=== PATIENT | female | born 1945 | race Hispanic/Latino ===

== ENCOUNTER → 2019-05-19 | Day surgery (SDC) | payer MEDICARE ==
[2019-05-17 11:07] LABS: BASOPHILS % 0.4 % (0.0-1.0); EOSINOPHILS # (AUTO) 0.2 (0.0-0.4); EOSINOPHILS % 2.8 % (0.0-6.0); HEMATOCRIT 39.3 % (34.2-44.1); HEMOGLOBIN 12.7 g/dL (12.0-16.0); LYMPHOCYTES # (AUTO) 1.3 (1.0-3.2); LYMPHOCYTES % 16.5 % (18.0-39.1); MEAN CORPUSCULAR HEMOGLOBIN 30.8 pg (28-32); MEAN CORPUSCULAR HGB CONC 32.3 g/dL (31-35); MEAN CORPUSCULAR VOLUME 95.4 fL (81-99); MONOCYTES # (AUTO) 0.6 (0.2-0.8); MONOCYTES % 7.4 % (4.4-11.3); NEUTROPHILS # (AUTO) 5.7 (2.1-6.9); NEUTROPHILS % 72.5 % (38.7-80.0); PLATELET COUNT 164 x10e3/uL (140-360); RED BLOOD COUNT 4.12 x10e6/uL (3.6-5.1); RED CELL DISTRIBUTION WIDTH 12.7 % (11.7-14.4)
[~2019-05-19] MED LIST: ASPIR 8181 MG PO; CITALOPRAM HBR20 MG PO; CLOPIDOGREL75 MG PO; GABAPENTIN300 MG PO; GLYBURIDE1.25 MG PO; ISOSORBIDE MONO30 MG PO; JANUVIA100 MG PO; LANTUS100 UNITS/ SC; LEVEMIR100 UNIT/1 SC; LOSARTAN-HCTZ1 EAC1 PO; METFORMIN HCL1000 MG PO; METOPROLOL TART50 MG PO; MICARDIS40 MG PO; MINOCYCLINE HCL50 MG PO; NORCO 7.5-3251 EACH PO; PROMETHAZINE12.5 M1 PO; PROPOFOL IV EMULSION 10 MG/ML 20 ML VIAL ONE; SIMVASTATIN40 MG PO; ULTRAM 50MG50 MG PO; ULTRAM50 MG PO; ZETIA10 MG PO
--- OUTSIDE RECORDS SUMMARY | 2019-05-19 09:08 | XMS REPORT ---
Author Author [facility] Address Unknown Phone Unavailable Care Team Providers Care Software Installer Name Role Phone Unavailable Unavailable Payers Payer Name Policy Type Policy Number Effective Date Expiration Date Problems This patient has no known problems. Allergies, Adverse Reactions, Alerts Allergy Name Allergy Type Status Severity Reaction(s) Onset Date Inactive Date Treating Clinician Comments No Known Allergies DA Active U 2012-05-13 00:00:00 Medications This patient has no known medications. Results Test Description Test Time Test Comments Text Results Atomic Results Result Comments - US RETROPERITONEAL COM 2019-04-29 14:48:00 Name: SHAMAR HERNANDEZ [facility] : 1945 Age/S: 73 / F [address] [facility] Unit #: [id number] Loc: [place] [address] Phys: Wanda Torres NP Acct: [id number] Dis Date: Status: REG CLI PHONE #: [phone] Exam Date: 04/29/2019 1417 FAX #: [phone] Reason: R31.21 EXAMS: CPT CODE: [id number] US RETROPERITONEAL COM 80397 REASON FOR EXAM: R31.21 EXAM ORDER DATE: 04/29/2019 1:10 PM Attending Fiorella: Wanda Torres NP PROCEDURE: - US RETROPERITONEAL COM Comparison: No relevant priors FINDINGS: Right kidney: parenchyma echogenicity: Normal echogenicity size: 9.3 x 4.2 x 3.8 cm. stones: none cysts/masses: none hydronephrosis: none Left kidney: parenchyma echogenicity: Normal echogenicity size: 9.7 x 4.2 x 4.2 cm. stones: none cysts/masses: none hydronephrosis: none Urinary Bladder: Ureteral jets: Not visualized Intraluminal masses/debris: None Wall thickness: Normal Outpouching: None IMPRESSION: Sonographically unremarkable kidneys. at 144 Reported and signed by: Neo Romero MD PAGE 1 Signed Report (CONTINUED) Name: SHAMAR HERNANDEZ [facility] : 1945 Age/S: 73 / F [address] [facility] Unit #: [id number] Loc: [place] [address] Phys: Wanda Torres NP Acct: [id number] Dis Date: Status: REG CLI PHONE #: [phone] Exam Date: 04/29/2019 1417 FAX #: [phone] Reason: R31.21 EXAMS: CPT CODE: [id number] [facility] [id number] <Continued> CC: Wanda Torres COMMERCIAL JOURNEYMAN ELECTRICIAN; Yeimi Ruiz MD Technologist: MARCOS ESCOBAR RT(R),[facility] Trnscb Date/Time: 04/29/2019 (1448) [email or web address] Orig Print D/T: S: 04/29/2019 (7443) Probe: PAGE 2 Signed Report
[2019-05-19 12:15] VITALS: BP 144/77
== END | disposition home or self-care (01) ==
LOC: OR 09:06
PROVIDERS: ATTEND Internal Medicine
DX: K29.70 Gastritis, unspecified, without bleeding (principal); K62.1 Rectal polyp; K21.9 Gastro-esophageal reflux disease without esophagitis; K44.9 Diaphragmatic hernia without obstruction or gangrene; K64.0 First degree hemorrhoids; E11.9 Type 2 diabetes mellitus without complications; I25.10 Atherosclerotic heart disease of native coronary artery without angina pectoris; I10 Essential (primary) hypertension; Z01.810 Encounter for preprocedural cardiovascular examination; Z01.812 Encounter for preprocedural laboratory examination; Z79.4 Long term (current) use of insulin; Z79.84 Long term (current) use of oral hypoglycemic drugs; Z68.30 Body mass index [BMI] 30.0-30.9, adult; Z95.0 Presence of cardiac pacemaker
CPT/HCPCS: 36415 ×2; 43239; 45380; 82948; 85025; 88305; 88312; 93005; J2704; 45378

== ENCOUNTER 2020-03-29 13:23 | Outpatient (RCR) | payer MEDICARE ==
[~2020-03-29 13:23] MED LIST changes: -PROPOFOL IV EMULSION 10 MG/ML 20 ML VIAL ONE
== END 2020-04-09 ==
LOC: WCC 13:23
PROVIDERS: ATTEND Family Medicine Adult Medicine
DX: E11.65 Type 2 diabetes mellitus with hyperglycemia (principal); L97.811 Non-pressure chronic ulcer of other part of right lower leg limited to breakdown of skin; I70.238 Atherosclerosis of native arteries of right leg with ulceration of other part of lower leg; I87.2 Venous insufficiency (chronic) (peripheral); R60.0 Localized edema; I79.8 Other disorders of arteries, arterioles and capillaries in diseases classified elsewhere; G99.0 Autonomic neuropathy in diseases classified elsewhere; I10 Essential (primary) hypertension; E78.2 Mixed hyperlipidemia
CPT/HCPCS: 36415; 82948

== ENCOUNTER 2020-04-03 15:55 | Emergency (ER) | payer MEDICARE ==
[~2020-04-03] VITALS: Ht 157.5 cm; Wt 68.0 kg
--- OUTSIDE RECORDS SUMMARY | 2020-04-03 16:29 | XMS REPORT | Continuity of Care Document ---
Author Author [facility] t Organization [facility] Address [address] [place] [id number] Phone Unavailable Care Team Providers Care Service Girl Name Role Phone Unavailable Unavailable Payers Payer Name Policy Type Policy Number Effective Date Expiration Date S ource Problems This patient has no known problems. Allergies, Adverse Reactions, Alerts Allergy Name Allergy Type Status Severity Reaction(s) Onset Date Inacti ve Date Treating Clinician Comments Source No Known Allergies DA Active U 2012-05-13 00:00:00 [facility] Medications This patient has no known medications. Procedures This patient has no known procedures. 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 at 1448 Reported and signed by: Neo Romero MD PAGE 1 Signed Report (CONTINUED) Name: SHAMAR HERNANDEZ [facility] : 1945 Age/S: 73 / F [address] [facility] Unit #: [id number] Loc: [place] [address] Phys: Wanda Torres NP Acct: [id number] Dis Date: Status: REG CLI PHONE #: [phone] Exam Date: 04/29/2019 1417 FAX #: [phone] Reason: R31.21 EXAMS: CPT CODE: [id number] US RETROPERITONEAL COM [id number] <Continued> CC: Wanda Torres NP; Yeimi Ruiz MD Technologist: MARCOS ESCOBAR RT(R),[facility] Trnscb Date/Time: 04/29/2019 (1448) [email or web address] Orig Print D/T: S: 04/29/2019 (9089) Probe: PAGE 2 Signed Report
--- NOTE | 2020-04-03 16:35 | Emergency Department Note ---
History of Present Illnes History of Present Illness Chief Complaint: General Medicine Complaints History of Present Illness This is a 74 year old female Chief Complaint Comment PATIENT IN FROM HOME WITH COMPLAINTS OF WOUND TO THE TOP OF RIGHT FOOT X 2 WEEKS; STATES STARTED ON ABX YESTERDAY. PATIENT WITH QUARTER SIZE WOUNBD TO TOP OF RIGHT FOOT WITH REDNESS. PATIENT STATES SHE HAS PAIN RATED 8/10. 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 Any updates have been documented here. Past Medical History Recent Fever: No Clinical Suspicion of Infectio: No New/Unexplained Change in Ment: No Past Medical History: Hypertension, Diabetes, CAD, Anxiety, Depression, Osteoarthritis Past Surgical History: None Social History Smoking Cessation: Never Smoker Counseling Performed: No Alcohol Use: None Any Illegal Drug Use: No Physically hurt or threatened: No Other Last Tetanus: Unknown Any Pre-Existing Lines (PICC,: No Review of Systems Review of Systems Constitutional: Reports no symptoms EENTM: Reports no symptoms Cardiovascular: Reports no symptoms Respiratory: Reports no symptoms Gastrointestinal: Reports no symptoms Genitourinary: Reports no symptoms Musculoskeletal: Reports no symptoms Integumentary: Reports as per HPI, Reports lesions (R dorsal foot) Neurological: Reports no symptoms Psychological: Reports no symptoms Endocrine: Reports no symptoms Hematological/Lymphatic: Reports no symptoms Physical Exam Related Data Allergies: Coded Allergies: No Known Allergies (Unverified , 01/09/17) Triage Vital Signs Vital Signs Date Time Temp Pulse Resp B/P (MAP) Pulse Ox O2 Delivery O2 Flow Rate FiO2 04/03/20 16:10 97.1 79 18 149/67 100 Room Air Vital signs reviewed: Yes Physical Exam CONSTITUTIONAL Constitutional: Present well-developed, Present well-nourished HENT HENT: Present normocephalic, Present atraumatic, Present oropharynx clear/moist, Present nose normal HENT L/R: Present left ext ear normal, Present right ext ear normal EYES Eyes: Reports PERRL, Reports conjunctivae normal NECK Neck: Present ROM normal PULMONARY Pulmonary: Present effort normal, Present breath sounds normal CARDIOVASCULAR Cardiovascular: Present regular rhythm, Present heart sounds normal, Present capillary refill normal, Present normal rate GASTROINTESTINAL Abdominal: Present soft, Present nontender, Present bowel sounds normal GENITOURINARY Genitourinary: Present exam deferred SKIN Skin: Present warm, Present dry, Present lesion (R dorsal foot with quarter sized pale skin. Mild erythema surrounding) MUSCULOSKELETAL Musculoskeletal: Present ROM normal NEUROLOGICAL Neurological: Present alert, Present oriented x 3, Present no gross motor or sensory deficits PSYCHOLOGICAL Psychological: Present mood/affect normal, Present judgement normal Results Laboratory Lab results reviewed: Yes Imaging Imaging results reviewed: Yes Assessment & Plan Medical Decision Making MDM 74-year-old female with quarter size lesion to the right dorsal foot and erythema concerning for cellulitis. She was just started on antibiotics yest erday. Work up does not suggest sepsis. Discussed results and management with patient and she will continue to take her keflex and follow up with her PCP for further concerns. Reassessment Reassessment time: 16:34 Reassessment Well appearing, NAD Assessment & Plan Final Impression: (1) Cellulitis Depart Disposition: HOME, SELF-CARE Last Vital Signs Date Time Temp Pulse Resp B/P (MAP) Pulse Ox O2 Delivery O2 Flow Rate FiO2 04/03/20 16:10 97.1 79 18 149/67 100 Room Air Home Meds Reported Medications Insulin Detemir (LEVEMIR) 100 Unit/1 Ml Vial, 35 U SC DAILY 05/17/19 Citalopram Hydrobromide (CITALOPRAM HBR) 20 Mg Tablet, 20 MG PO DAILY, TAB 05/17/19 Tramadol Hcl (ULTRAM) 50 Mg Tablet, 50 MG PO Q8H PRN for PAIN, TAB 01/10/17 Losartan/Hydrochlorothiazide (LOSARTAN-HCTZ 100-25 MG TAB) 1 Each Tablet, 1 TAB PO DAILY 01/09/17 Sitagliptin Phosphate (JANUVIA) 100 Mg Tablet, 100 MG PO DAILY, #30 TAB 01/09/17 Hydrocodone Bit/Acetaminophen (NORCO 7.5-325 TABLET) 1 Each Tablet, 1 EA PO Q8H, TAB 01/09/17 Simvastatin (SIMVASTATIN) 40 Mg Tablet, 40 MG PO DAILY 07/12/13 Metoprolol Tartrate (METOPROLOL TARTRATE) 50 Mg Tablet, 50 MG PO BID 07/12/13 Isosorbide Mononitrate (ISOSORBIDE MONONITRATE ER) 30 Mg Tab.er.24h, 30 MG PO BID 07/12/13 Metformin Hcl (METFORMIN HCL) 1,000 Mg Tablet, 500 MG PO DAILY 07/12/13 Ezetimibe (ZETIA) 10 Mg Tablet, 10 MG PO DAILY 07/12/13 MILTON WADDELL MD Apr 03, 2020 16:35
[2020-04-03] MEDS ORDERED: ACETAMINOPHEN 325 MG TAB PO ONE (16:45)
[2020-04-03 16:56] LABS: BASOPHILS % 0.3 % (0.0-1.0); EOSINOPHILS # (AUTO) 0.3 (0.0-0.4); EOSINOPHILS % 3.5 % (0.0-6.0); HEMATOCRIT 40.2 % (34.2-44.1); HEMOGLOBIN 13.2 g/dL (12.0-16.0); LYMPHOCYTES # (AUTO) 1.6 (1.0-3.2); LYMPHOCYTES % 17.3 % (18.0-39.1); MEAN CORPUSCULAR HEMOGLOBIN 31.1 pg (28-32); MEAN CORPUSCULAR HGB CONC 32.8 g/dL (31-35); MEAN CORPUSCULAR VOLUME 94.8 fL (81-99); MONOCYTES # (AUTO) 0.6 (0.2-0.8); MONOCYTES % 6.5 % (4.4-11.3); NEUTROPHILS # (AUTO) 6.8 (2.1-6.9); NEUTROPHILS % 72.2 % (38.7-80.0); PLATELET COUNT 178 x10e3/uL (140-360); RED BLOOD COUNT 4.24 x10e6/uL (3.6-5.1); RED CELL DISTRIBUTION WIDTH 12.4 % (11.7-14.4)
[2020-04-03 17:16] LABS: ALBUMIN/GLOBULIN RATIO 1.2 (0.8-2.0); ANION GAP 18.9 mmol/L (8-16); CALCIUM 9.4 mg/dL (8.4-10.2); CREATININE, SERUM 1.11 mg/dL (0.57-1.11); POTASSIUM 3.9 mmol/L (3.5-5.1)
--- NOTE | 2020-04-03 17:41 | Diagnostic Imaging Report ---
X-ray of the foot, 3 views. HISTORY: Pain. COMPARISON: None available. FINDINGS: Bones: No acute displaced fracture. Osseous alignment is within normal limits. Joints: The joint spaces are well-maintained. There are mild degenerative changes of the midfoot. Soft tissues: The soft tissues appear unremarkable. IMPRESSION: No acute radiographic abnormality. Mild degenerative changes of the midfoot. Signed by: Marlyn Fuller MD on 04/03/2020 5:38 PM
== END 2020-04-03 18:27 | disposition home or self-care (01) ==
LOC: ER 16:26
DX: L03.115 Cellulitis of right lower limb (principal); M79.671 Pain in right foot; I10 Essential (primary) hypertension; E11.9 Type 2 diabetes mellitus without complications; I25.10 Atherosclerotic heart disease of native coronary artery without angina pectoris; F41.9 Anxiety disorder, unspecified
CPT/HCPCS: 36415; 80053; 85025; 99284

== ENCOUNTER 2020-04-09 12:25 | Emergency (ER) | payer MEDICARE ==
[~2020-04-09] VITALS: Ht 157.5 cm; Wt 68.0 kg
--- NOTE | 2020-04-09 13:17 | NUR ---
CALLED, NO ANSWER
--- OUTSIDE RECORDS SUMMARY | 2020-04-09 13:40 | XMS REPORT | Continuity of Care Document ---
Demographics Address [address] [address] [place] [address] Preferred Language Unknown Marital Status Unknown Judaism Affiliation Unknown Race Unknown Additional Race(s) Other Ethnic Group Unknown Author Author [facility] t Organization [facility] Address [address] [place] [address] [place] [id number] Phone Unavailable Care Team Providers Care Coping Machine Operator Name Role Phone NONSTAFF PCP Unavailable Uriah Jackson Unavailable Payers Payer Name Policy Type Policy Number Effective Date Expiration Date Benja brewster [facility] [id number] 2019 00:00:00 [facility] Medicare A & B [id number] 2009 00:00:00 [facility] Problems Condition Name Condition Details Condition Category Status Onset Date Resolution Date Last Treatment Date Treating Clinician Comments Source Bradycardia Problem Active [facility] Allergies, Adverse Reactions, Alerts This patient has no known allergies or adverse reactions. Family History Family Member Diagnosis Comments Start Date Stop Date Source 33 FATHER Family history of diabetes mellitus [facility] 33 FATHER Family history of hypertension [facility] 32 MOTHER Family history of diabetes mellitus [facility] 32 MOTHER Family history of hypertension [facility] 09 BROTHER Family history of diabetes mellitus [facility] 09 BROTHER Family history of hypertension [facility] 09 SISTER Family history of diabetes mellitus [facility] 09 SISTER Family history of hypertension [facility] Social History Social Habit Start Date Stop Date Quantity Comments Source Sex Assigned At 1945 00:00:00 1945 00:00:00 Female [facility] Medications Ordered Medication Name Filled Medication Name Start Date Stop Da te Current Medication? Ordering Clinician Indication Dosage Frequency Signature (SIG) Comments Components Source Citalopram Hydrobromide (Citalopram Hbr) 20 Mg TABLET Citalopram Hydrobromide (Citalopram Hbr) 20 Mg TABLET Yes 20 Daily [facility] Ezetimibe (Zetia) 10 Mg TABLET Ezetimibe (Zetia) 10 Mg TABLET Yes 10 Daily [facility] Hydrocodone Bit/Acetaminophen ([place] 7.5-325 Tablet) 1 Each TABLET Hydrocodone Bit/Acetaminophen ([place] 7.5-325 Tablet) 1 Each TABLET Yes 1 Every 8 Hours [facility] Insulin Detemir (Levemir) 100 Unit/1 Ml VIAL Insulin D etemir (Levemir) 100 Unit/1 Ml VIAL Yes 35 Daily [facility] Isosorbide Mononitrate (Isosorbide Mononitrate Er) 30 Mg TAB.ER.24H Isosorbide Mononitrate (Isosorbide Mononitrate Er) 30 Mg TAB.ER.24H Yes 30 Twice A Day [facility] Losartan/Hydrochlorothiazide (Losartan-Hctz 100-25 Mg Tab) 1 Each TABLET Losartan/Hydrochlorothiazide (Losartan-Hctz 100-25 Mg Tab) 1 Each TABLET Yes 1 Daily [facility] Metformin Hcl Metformin Hcl Yes 500 Daily [facility] Metoprolol Tartrate Metoprolol Tartrate Yes 50 Twice A Day [facility] Simvastatin Simvastatin Yes 40 Daily [facility] Sitagliptin Phosphate (Januvia) 100 Mg TABLET Sitaglip tin Phosphate (Januvia) 100 Mg TABLET Yes 100 Daily [facility] Tramadol Hcl (Ultram) 50 Mg TABLET Tramadol Hcl (Ultram) 50 Mg TABLET Yes 50 Every 8 Hours as needed for Pain [facility] Clopidogrel Bisulfate (Clopidogrel) 75 Mg TABLET Clopi dogrel Bisulfate (Clopidogrel) 75 Mg TABLET 2019-05-17 00:00:00 No 1 Daily [facility] Gabapentin Gabapentin 2019-05-17 00:00:00 No 300 Thr ee Times A Day [facility] Insulin Glargine (Lantus) 100 Units/Ml ML Insulin Glar gine (Lantus) 100 Units/Ml ML 2019-05-17 00:00:00 No 40 Daily [facility] Minocycline Hcl Minocycline Hcl 2019-05-17 00:00:00 No 100 Twice A Day [facility] Promethazine Hcl Promethazine Hcl 2019-05-17 00:00:00 No 12.5 Every 4-6 Hours as needed [facility] Aspirin (Aspir 81) 81 Mg TABLET. Aspirin (Aspir 81) 81 Mg RICHARD ET. 2017-01-09 00:00:00 No 81 Daily [facility] Glyburide Glyburide 2017-01-09 00:00:00 No 1.25 Twice A Day [facility] Sitagliptin Phosphate (Januvia) 100 Mg TABLET Sitaglip tin Phosphate (Januvia) 100 Mg TABLET 2017-01-09 00:00:00 No 100 Daily [facility] Telmisartan (Micardis) 40 Mg TAB Telmisartan (Micardis) 40 Mg TA B 2017-01-09 00:00:00 No 40 Daily [facility] Tramadol Hcl (Ultram 50MG*) 50 Mg TAB Tramadol Hcl (Ultram 50MG* ) 50 Mg TAB 2017-01-09 00:00:00 No 50 Every 4-6 Hours [facility] Vital Signs Vital Name Observation Time Observation Value Comments Source Weight 2020-04-03 16:10:00 150 [lb_av] [facility] BMI (Body Mass Index) 2020-04-03 16:10:00 27.4 kg/m2 [facility] Procedures This patient has no known procedures. Plan of Care Planned Activity Planned Date Details Comments Source Instructions Cellulitis [facility] Encounters Start Date/Time End Date/Time Encounter Type Admission Type [facility] Care Department Encounter ID Source 2020-04-03 16:26:00 2020-04-03 16:26:00 Registered Emergency Room 1 Milton Jackson [facility] [id number] I [facility] 2020-03-29 13:23:00 2020-03-29 13:23:00 [facility] [id number] [facility] Results Test Description Test Time Test Comments Results Result Comments Source FOOT RIGHT COMPLETE 2020-04-03 17:30:00 [facility] [address] [address] Patient Name: SHAMAR HERNANDEZ MR #: [id number] : 1945 Age/Sex: 74/F Req #: [id number] Adm Physician: Ordered by: Milton Jackson MD Report #: [id number] Location: ER Room/Bed: Procedure: [id number] DX/FOOT RIGHT COMPLETE Exam Date: 04/03/20 Exam Time: 1657 REPORT STATUS: Signed X-ray of the foot, 3 views. HISTORY: Pain. COMPARISON: None available. FINDINGS: Bones: No acute displaced fracture. Osseous alignment is within normal limits. Joints: The joint spaces are well-maintained. There are mild degenerative changes of the midfoot. Soft tissues: The soft tissues appear unremarkable. IMPRESSION: No acute radiographic abnormality. Mild degenerative changes of the midfoot. Signed by: Laya Puga MD on 04/03/2020 5:38 PM Dictated By: LAYA PUGA MD 37 Transcribed By: NAVYA on 04/03/201737 COPY TO: MILTON JACKSON MD Blood leukocytes automated count (number/volume) 2020-04-03 16:30:00 Test Item White Blood Count (test code = 6690-2) 9.47 4.8-10.8 [facility] count (number/volume)2020-04-03 16:30:00* Test Item Value Reference Range Interpretation Comments Red Blood Count (test code = 789-8) 4.24 3.6-5.1 [facility] hemoglobin measurement (moles/volume)2020-04-03 16:30:00* Test Item Value Reference Range Interpretation Comments Hemoglobin (test code = 16975-6) 13.2 12.0-16.0 [facility] blood hematocrit (volume fraction)2020-04-03 16:30:00* Test Item Value Reference Range Interpretation Comments Hematocrit (test code = 4544-3) 40.2 34.2-44.1 [facility] erythrocyte mean corpuscular [id number] 16:30:00* Test Item Value Reference Range Interpretation Comments Mean Corpuscular Volume (test code = 787-2) 94.8 81-99 [facility] eryth[facility] mean corpuscular hemoglobin (mass per erythrocyte)2020-04-03 16:30:00* Test Item Value Reference Range Interpretation Comments Mean Corpuscular Hemoglobin (test code = 785-6) 31.1 28-32 [facility] erythrocyte mean corpuscular hemoglobin concentration measurement (mass/volume)2020-04-03 16:30:00* Test Item Value Reference Range Interpretation Comments Mean Corpuscular Hemoglobin Concent (test code = 786-4) 32.8 31-35 [facility] TexasRDW JvdKx-[id number] 16:30:00* Test Item Value Reference Range Interpretation Comments Red Cell Distribution Width (test code = 29666-3) 12.4 11.7 -14.4 [facility] platelet count (count/volume)2020-04-03 16:30:00* Test Item Value Reference Range Interpretation Comments Platelet Count (test code = 777-3) 178 140-360 [facility] blood segmented neutrophil count as percentage of total lvemxleuvp7276-68-42 16:30:00* Test Item Value Reference Range Interpretation Comments Neutrophils (%) (Auto) (test code = 96204-9) 72.2 38.7-80.0 [facility] lymphocyte count as percentage ot total qwphfjxbww3964-70-56 16:30:00* Test Item Value Reference Range Interpretation Comments Lymphocytes (%) (Auto) (test code = 736-9) 17.3 18.0-39.1 [facility] blood monocyte count as percentage of total cpvcmhjlgz0861-50-35 16:30:00* Test Item Value Reference Range Interpretation Comments Monocytes (%) (Auto) (test code = 5905-5) 6.5 4.4-11.3 [facility]Aut[facility] hospitaled blood eosinophil count as percentage of total dmiguuilsk7881-68-09 16:30:00* Test Item Value Reference Range Interpretation Comments Eosinophils (%) (Auto) (test code = 713-8) 3.5 0.0-6.0 [facility] blood basophil count as percentage of total omcxwtknmt2841-28-01 16:30:00* Test Item Value Reference Range Interpretation Comments Basophils (%) (Auto) (test code = 706-2) 0.3 0.0-1.0 [facility] TexasFluoroscopic procedure less than one hour axmebbdj1878-69-87 16:30:00* Test Item Value Reference Range Interpretation Comments IM GRANULOCYTES % (test code = IM GRANULOCYTES %) 0.2 0.0- 1.0 [facility] blood neutrophil count 2020-04-03 16:30:00* Test Item Value Reference Range Interpretation Comments Neutrophils # (Auto) (test code = 751-8) 6.8 2.1-6.9 [facility] lymphocytes count (number/volume) 2020-04-03 16:30:00* Test Item Value Reference Range Interpretation Comments Lymphocytes # (Auto) (test code = 04897-1) 1.6 1.0-3.2 [facility] monocytes automated count (number/volume)2020-04-03 16:30:00* Test Item Value Reference Range Interpretation Comments Monocytes # (Auto) (test code = 742-7) 0.6 0.2-0.8 [facility] blood eosinophil count 2020-04-03 16:30:00* Test Item Value Reference Range Interpretation Comments Eosinophils # (Auto) (test code = 711-2) 0.3 0.0-0.4 [facility]Autom[facility] blood basophil count (count/volume)2020-04-03 16:30:00* Test Item Value Reference Range Interpretation Comments Basophils # (Auto) (test code = 704-7) 0.0 0.0-0.1 [facility] TexasFluoroscopic procedure less than one hour hwnphilj4492-36-02 16:30:00* Test Item Value Reference Range Interpretation Comments Absolute Immature Granulocyte (auto (neda t code = Absolute Immature Granulocyte (auto) 0.02 0-0.1 [facility] sodium measurement (moles/volume)2020-04-03 16:30:00* Test Item Value Reference Range Interpretation Comments Sodium Level (test code = 2951-2) 138 136-145 [facility] plasma potassium measurement (moles/volume)2020-04-03 16:30:00* Test Item Value Reference Range Interpretation Comments Potassium Level (test code = 2823-3) 3.9 3.5-5.1 [facility] plasma chloride measurement (moles/volume)2020-04-03 16:30:00* Test Item Value Reference Range Interpretation Comments Chloride Level (test code = 2075-0) 101 98-107 [facility] or plasma carbon dioxide, total measurement (moles/volume)2020-04-03 16:30:00* Test Item Value Reference Range Interpretation Comments Carbon Dioxide Level (test code = 2028-9) 22 22-29 [facility] or plasma anion [id number] 16:30:00* Test Item Value Reference Range Interpretation Comments Anion Gap (test code = 85844-4) 18.9 8-16 [facility] plasma urea nitrogen measurement (mass/volume)2020-04-03 16:30:00* Test Item Value Reference Range Interpretation Comments Blood Urea Nitrogen (test code = 3094-0) 46 7-26 [facility] plasma creatinine measurement (mass/volume)2020-04-03 16:30:00* Test Item Value Reference Range Interpretation Comments Creatinine (test code = 2160-0) 1.11 0.57-1.11 [facility] plasma urea nitrogen/creatinine mass wyvlc8816-29-42 16:30:00* Test Item Value Reference Range Interpretation Comments BUN/Creatinine Ratio (test code = 3097-3) 41 6-25 [facility] TexasEstimated glomerular filtration rate (GFR) ytoneaevdamlb2177-47-85 16:30:00* Test Item Value Reference Range Interpretation Comments Estimat Glomerular Filtration Rate (test code = 425155170) 48 >60 Ranges were taken from the National Kidney Disease Education Program and the [place] on license of [place] [facility] [employer] literature.Reference ranges:60 or greater: Cvbpop85-41 ( for 3 consecutive months): Chronic kidney disease 15 or less: Kidney failureAdventHealth Central TexasGlucose fgptahrucpd6892-16-26 16:30:00* Test Item Value Reference Range Interpretation Comments Glucose Level (test code = FFB2581) 152 74-118 [facility]er[facility] or plasma calcium measurement (mass/volume)2020-04-03 16:30:00* Test Item Value Reference Range Interpretation Comments Calcium Level (test code = 44918-5) 9.4 8.4-10.2 [facility]er[facility] or plasma total bilirubin measurement (mass/volume)2020-04-03 16:30:00* Test Item Value Reference Range Interpretation Comments Total Bilirubin (test code = 1975-2) 0.2 0.2-1.2 [facility] TexasFluoroscopic procedure less than one hour uywdlopd5446-85-85 16:30:00* Test Item Value Reference Range Interpretation Comments Aspartate Amino Transf (AST/SGOT) (test code = Aspartate Amino Transf (AST/SGOT)) 32 5-34 [facility] Hospitalerum or plasma alanine aminotransferase measurement (enzymatic activity/volume)2020-04-03 16:30:00* Test Item Value Reference Range Interpretation Comments Alanine Aminotransferase (ALT/SGPT) (test code = 1742-6) 26 0-55 [facility] Hospitaler[facility] or plasma protein measurement (mass/volume)2020-04-03 16:30:00* Test Item Value Reference Range Interpretation Comments Total Protein (test code = 2885-2) 7.3 6.5-8.1 [facility] Hospitaler[facility] or plasma albumin measurement (mass/volume)2020-04-03 16:30:00* Test Item Value Reference Range Interpretation Comments Albumin (test code = 1751-7) 4.0 3.5-5.0 [facility] TexasPlasma globulin measurement (mass/volume) 2020-04-03 16:30:00* Test Item Value Reference Range Interpretation Comments Globulin (test code = 68014-1) 3.3 2.3-3.5 [facility] or plasma albumin/globulin mass tomuw7265-58-07 16:30:00* Test Item Value Reference Range Interpretation Comments Albumin/Globulin Ratio (test code = 1759-0) 1.2 0.8-2.0 [facility] Hospitalerum or plasma alkaline phosphatase measurement (enzymatic activity/volume)2020-04-03 16:30:00* Test Item Value Reference Range Interpretation Comments Alkaline Phosphatase (test code = 6768-6) 88 40-150 [facility] TexasCapillary blood glucose measurement by glucometer (mass/volume)2020-03-29 09:42:00* Test Item Value Reference Range Interpretation Comments Bedside Glucose (test code = 60024-3) 71 70-120 Meter ID: [id number] Central [place]
[2020-04-09] MEDS ORDERED: ONDANSETRON HCL INJ 2MG/ML 2ML 2 MG/ML VIAL IV STA (14:16)
[2020-04-09] MEDS ORDERED: HYDROCODONE/APAP 5MG-325MG TAB PO ONE (14:30)
[2020-04-09 14:35] LABS: BASOPHILS % 0.4 % (0.0-1.0); EOSINOPHILS # (AUTO) 0.3 (0.0-0.4); EOSINOPHILS % 3.3 % (0.0-6.0); HEMATOCRIT 43.5 % (34.2-44.1); HEMOGLOBIN 14.2 g/dL (12.0-16.0); LYMPHOCYTES # (AUTO) 1.7 (1.0-3.2); LYMPHOCYTES % 16.5 % (18.0-39.1); MEAN CORPUSCULAR HEMOGLOBIN 30.8 pg (28-32); MEAN CORPUSCULAR HGB CONC 32.6 g/dL (31-35); MEAN CORPUSCULAR VOLUME 94.4 fL (81-99); MONOCYTES # (AUTO) 0.6 (0.2-0.8); MONOCYTES % 5.7 % (4.4-11.3); NEUTROPHILS # (AUTO) 7.6 (2.1-6.9); NEUTROPHILS % 73.7 % (38.7-80.0); PLATELET COUNT 258 x10e3/uL (140-360); RED BLOOD COUNT 4.61 x10e6/uL (3.6-5.1); RED CELL DISTRIBUTION WIDTH 12.5 % (11.7-14.4)
[2020-04-09 14:51] LABS: ALBUMIN 4.3 g/dL (3.5-5.0); ALBUMIN/GLOBULIN RATIO 1.2 (0.8-2.0); ANION GAP 18.1 mmol/L (8-16); CALCIUM 9.6 mg/dL (8.4-10.2); CREATININE, SERUM 1.2 mg/dL (0.57-1.11); POTASSIUM 4.1 mmol/L (3.5-5.1)
[2020-04-09] MEDS ORDERED: DEXTROSE 50% SYRINGE 50 ML IV STA (14:54)
--- NOTE | 2020-04-09 15:50 | Diagnostic Imaging Report ---
Right foot, 3 views INDICATION: ^wound - r/o osteo ^[id number] ^1529 Comparison: None available. Discussion: Multiple views of the right foot are negative for an acute displaced fracture or dislocation. Osseous structures are demineralized. Negative for cortical erosion or periosteal reaction. Negative for subcutaneous emphysema. Dorsal tarsal spurring is noted. Plantar calcaneal spur is noted. Negative for tibiotalar joint effusion. IMPRESSION: Negative for radiographic evidence of osteomyelitis of the right foot. Consider follow-up triple phase bone scan or noncontrast MRI for further evaluation if clinically indicated. Signed by: Santiago Ponce MD on 04/09/2020 3:46 PM
--- NOTE | 2020-04-09 16:55 | Emergency Department Note ---
History of Present Illnes History of Present Illness Chief Complaint: General Medicine Complaints History of Present Illness This is a 74 year old female Patient in from home with complaints of a non-healing wound to her top of her right foot. Patient states that she had home health taking care of the wound but they stopped coming about 4 days ago and she is not sure why and if they will come back. Patient states that she feels the wound is getting larger rather than smaller. Patient with a appoximately 3.5-4cm round ulceration to the dorsal surface of her mid right foot with a slough covering with some necrotic appearing tissue as well. Greenish yellow drainage noted on bandage that the patient walked in with. Historian: Patient Arrival Mode: Car Attendant Self Service Store Required: Yes Onset (how long ago): unknown (BUT CHRONIC) Location: RIGHT FOOT Quality: ULCER Radiation: Reports non-radiation Severity: mild Onset quality: gradual Chronicity: chronic Context: Denies recent illness Relieving factors: none Exacerbating factors: none Associated symptoms: Reports denies other symptoms Treatments prior to arrival: none Past Medical/Family History Physician Review I have reviewed the patient's past medical and family history. Any updates have been documented here. Past Medical History Recent Fever: No Clinical Suspicion of Infectio: Yes New/Unexplained Change in Ment: No Past Medical History: Hypertension, Diabetes, CAD, Depression, Osteoarthritis Past Surgical History: None Other Surgery: Stents x 2 Social History Smoking Cessation: Never Smoker Counseling Performed: No Alcohol Use: None Any Illegal Drug Use: No TB Exposure/Symptoms: No Physically hurt or threatened: No Family History Family history of heart diseas: No Other Last Tetanus: Unknown Any Pre-Existing Lines (PICC,: No Review of Systems Review of Systems Constitutional: Reports no symptoms EENTM: Reports no symptoms Cardiovascular: Reports no symptoms Respiratory: Reports no symptoms Gastrointestinal: Reports no symptoms Genitourinary: Reports no symptoms Musculoskeletal: Reports no symptoms Integumentary: Reports as per HPI Neurological: Reports no symptoms Psychological: Reports no symptoms Endocrine: Reports no symptoms Hematological/Lymphatic: Reports no symptoms Physical Exam Related Data Allergies: Coded Allergies: No Known Allergies (Unverified , 01/09/17) Triage Vital Signs Vital Signs Date Time Temp Pulse Resp B/P (MAP) Pulse Ox O2 Delivery O2 Flow Rate FiO2 04/09/20 13:42 98.7 68 17 142/63 100 Room Air Vital signs reviewed: Yes Physical Exam CONSTITUTIONAL Constitutional: Present well-developed, Present well-nourished HENT HENT: Present normocephalic, Present atraumatic, Present oropharynx clear/moist, Present nose normal HENT L/R: Present left ext ear normal, Present right ext ear normal EYES Eyes: Reports PERRL, Reports conjunctivae normal NECK Neck: Present ROM normal PULMONARY Pulmonary: Present effort normal, Present breath sounds normal CARDIOVASCULAR Cardiovascular: Present regular rhythm, Present heart sounds normal, Present capillary refill normal, Present normal rate GASTROINTESTINAL Abdominal: Present soft, Present nontender, Present bowel sounds normal GENITOURINARY Genitourinary: Present exam deferred SKIN Skin: Present warm, Present dry, Present other (4X3 CM ULCERATIVE LESION WITH PARTIAL ESCHAR, NO DISCHARGE NOTED, NO CELLULITIS) MUSCULOSKELETAL Musculoskeletal: Present ROM normal NEUROLOGICAL Neurological: Present alert, Present oriented x 3, Present no gross motor or sensory deficits PSYCHOLOGICAL Psychological: Present mood/affect normal, Present judgement normal Results Laboratory Result Diagram: 04/09/20 1410 04/09/20 1410 Laboratory Laboratory Tests Test 04/09/20 14:10 White Blood Count 10.27 x10e3/uL (4.8-10.8) Red Blood Count 4.61 x10e6/uL (3.6-5.1) Hemoglobin 14.2 g/dL (12.0-16.0) Hematocrit 43.5 % (34.2-44.1) Mean Corpuscular Volume 94.4 fL (81-99) Mean Corpuscular Hemoglobin 30.8 pg (28-32) Mean Corpuscular Hemoglobin Concent 32.6 g/dL (31-35) Red Cell Distribution Width 12.5 % (11.7-14.4) Platelet Count 258 x10e3/uL (140-360) Neutrophils (%) (Auto) 73.7 % (38.7-80.0) Lymphocytes (%) (Auto) 16.5 % (18.0-39.1) Monocytes (%) (Auto) 5.7 % (4.4-11.3) Eosinophils (%) (Auto) 3.3 % (0.0-6.0) Basophils (%) (Auto) 0.4 % (0.0-1.0) Neutrophils # (Auto) 7.6 (2.1-6.9) Lymphocytes # (Auto) 1.7 (1.0-3.2) Monocytes # (Auto) 0.6 (0.2-0.8) Eosinophils # (Auto) 0.3 (0.0-0.4) Basophils # (Auto) 0.0 (0.0-0.1) Absolute Immature Granulocyte (auto 0.04 x10e3/uL (0-0.1) Sodium Level 141 mmol/L (136-145) Potassium Level 4.1 mmol/L (3.5-5.1) Chloride Level 103 mmol/L (98-107) Carbon Dioxide Level 24 mmol/L (22-29) Anion Gap 18.1 mmol/L (8-16) Blood Urea Nitrogen 34 mg/dL (7-26) Creatinine 1.20 mg/dL (0.57-1.11) Estimat Glomerular Filtration Rate 44 ML/MIN (60-) BUN/Creatinine Ratio 28 (6-25) Glucose Level 52 mg/dL (74-118) Calcium Level 9.6 mg/dL (8.4-10.2) Total Bilirubin 0.3 mg/dL (0.2-1.2) Aspartate Amino Transf (AST/SGOT) 39 IU/L (5-34) Alanine Aminotransferase (ALT/SGPT) 36 IU/L (0-55) Alkaline Phosphatase 91 IU/L (40-150) Total Protein 7.9 g/dL (6.5-8.1) Albumin 4.3 g/dL (3.5-5.0) Globulin 3.6 g/dL (2.3-3.5) Albumin/Globulin Ratio 1.2 (0.8-2.0) Lab results reviewed: Yes Imaging Imaging results reviewed: Yes Assessment & Plan Medical Decision Making MDM CBC, CHEM, XRAY, BLOOD CX'S - EVAL FOR LEUKOCYTOSIS, OSTEOMYELITIS Reassessment Reassessment DC HOME, BACTROBAN, CIPRO/CLINDA, F/U PCP AND WOUND CARE CLINIC Assessment & Plan Final Impression: (1) Diabetic ulcer of foot associated with diabetes mellitus due to underlying condition, limited to breakdown of skin Depart Disposition: HOME, SELF-CARE Last Vital Signs Date Time Temp Pulse Resp B/P (MAP) Pulse Ox O2 Delivery O2 Flow Rate FiO2 04/09/20 13:42 98.7 68 17 142/63 100 Room Air Home Meds Reported Medications Insulin Detemir (LEVEMIR) 100 Unit/1 Ml Vial, 35 U SC DAILY 05/17/19 Citalopram Hydrobromide (CITALOPRAM HBR) 20 Mg Tablet, 20 MG PO DAILY, TAB 05/17/19 Tramadol Hcl (ULTRAM) 50 Mg Tablet, 50 MG PO Q8H PRN for PAIN, TAB 01/10/17 Losartan/Hydrochlorothiazide (LOSARTAN-HCTZ 100-25 MG TAB) 1 Each Tablet, 1 TAB PO DAILY 01/09/17 Sitagliptin Phosphate (JANUVIA) 100 Mg Tablet, 100 MG PO DAILY, #30 TAB 01/09/17 Hydrocodone Bit/Acetaminophen ([place] 7.5-325 TABLET) 1 Each Tablet, 1 EA PO Q8H, TAB 01/09/17 Simvastatin (SIMVASTATIN) 40 Mg Tablet, 40 MG PO DAILY 07/12/13 Metoprolol Tartrate (METOPROLOL TARTRATE) 50 Mg Tablet, 50 MG PO BID 07/12/13 Isosorbide Mononitrate (ISOSORBIDE MONONITRATE ER) 30 Mg Tab.er.24h, 30 MG PO BID 07/12/13 Metformin Hcl (METFORMIN HCL) 1,000 Mg Tablet, 500 MG PO DAILY 07/12/13 Ezetimibe (ZETIA) 10 Mg Tablet, 10 MG PO DAILY 07/12/13 Medications in the ED Acetaminophen/ Hydrocodone Bitart 1 ea ONCE ONCE PO Last administered on 04/09/20at 15:11; Admin Dose 1 EA; Start 04/09/20 at 14:30; Stop 04/09/20 at 14:31; Status DC Ondansetron HCl 4 mg NOW STAT IV Last administered on 04/09/20at 15:11; Admin Dose 4 MG; Start 04/09/20 at 14:16; Stop 04/09/20 at 14:23; Status DC Dextrose 50 ml NOW STAT IV Last administered on 04/09/20at 15:11; Admin Dose 50 ML; Start 04/09/20 at 14:54; Stop 04/09/20 at 14:55; Status DC INEZ DIANA MD Apr 09, 2020 16:55
== END 2020-04-09 17:42 | disposition home or self-care (01) ==
LOC: ER 12:38
DX: E08.621 Diabetes mellitus due to underlying condition with foot ulcer (principal); L97.511 Non-pressure chronic ulcer of other part of right foot limited to breakdown of skin; I10 Essential (primary) hypertension; I25.10 Atherosclerotic heart disease of native coronary artery without angina pectoris; F32.9 Major depressive disorder, single episode, unspecified
CPT/HCPCS: 36415; 73630; 80053; 85025; 87040; 99284; J2405; J7799

== ENCOUNTER → 2020-05-03 | Day surgery (SDC) | payer MEDICARE, OTHER ==
[2020-04-30 16:36] LABS: BASOPHILS % 0.4 % (0.0-1.0); EOSINOPHILS # (AUTO) 0.3 (0.0-0.4); EOSINOPHILS % 3.9 % (0.0-6.0); HEMATOCRIT 37.7 % (34.2-44.1); HEMOGLOBIN 12.2 g/dL (12.0-16.0); LYMPHOCYTES # (AUTO) 1.2 (1.0-3.2); LYMPHOCYTES % 16.7 % (18.0-39.1); MEAN CORPUSCULAR HEMOGLOBIN 30.9 pg (28-32); MEAN CORPUSCULAR HGB CONC 32.4 g/dL (31-35); MEAN CORPUSCULAR VOLUME 95.4 fL (81-99); MONOCYTES # (AUTO) 0.5 (0.2-0.8); MONOCYTES % 7.3 % (4.4-11.3); NEUTROPHILS % 71.4 % (38.7-80.0); PLATELET COUNT 196 x10e3/uL (140-360); RED BLOOD COUNT 3.95 x10e6/uL (3.6-5.1); RED CELL DISTRIBUTION WIDTH 12.7 % (11.7-14.4)
[2020-04-30 16:54] LABS: ALBUMIN 4.1 g/dL (3.5-5.0); ALBUMIN/GLOBULIN RATIO 1.6 (0.8-2.0); ANION GAP 12.9 mmol/L (8-16); CALCIUM 8.9 mg/dL (8.4-10.2); CREATININE, SERUM 1.08 mg/dL (0.57-1.11); POTASSIUM 4.9 mmol/L (3.5-5.1)
[2020-05-03] VITALS (13 sets, daily range): BP systolic 126–180; BP diastolic 54–94
[~2020-05-03] MED LIST changes: +CEFDINIR300 MG PO; +CETIRIZINE HCL10 MG PO; +FENTANYL CITRATE/PF 100MCG/2 ML INJ ONE; +HEPARIN SOD/SOD CHLORIDE 2,000 ML ONE; +HYDROCHLOROTHIA25 MG PO; +IOPAMIDOL 300MG/ML 100 ML INFUS..BTL IV ONE; +LIDOCAINE HCL 2% LOCAL 20 ML VIAL ONE; +LOSARTAN POTAS100 MG PO; +METFORMIN HCL500 M2 PO; +METOPROLOL SUCC25 MG PO; +METOPROLOL TAR100 MG PO; +MIDAZOLAM HCL 2 MG/2 ML VIAL ONE; +NORVASC10 MG PO; +SODIUM CHLORIDE 0.9% 1000ML 1,000 ML ONE
== END | disposition home or self-care (01) ==
LOC: CATH LAB 10:55
PROVIDERS: ATTEND Internal Medicine Interventional Cardiology
DX: I73.9 Peripheral vascular disease, unspecified (principal); I77.1 Stricture of artery; I25.10 Atherosclerotic heart disease of native coronary artery without angina pectoris; E11.22 Type 2 diabetes mellitus with diabetic chronic kidney disease; I13.11 Hypertensive heart and chronic kidney disease without heart failure, with stage 5 chronic kidney disease, or end stage renal disease; N18.6 End stage renal disease; Z01.812 Encounter for preprocedural laboratory examination; Z11.59 Encounter for screening for other viral diseases; Z79.84 Long term (current) use of oral hypoglycemic drugs; Z79.02 Long term (current) use of antithrombotics/antiplatelets; Z79.4 Long term (current) use of insulin
CPT/HCPCS: 36247; 36415 ×2; 75625; 75710; 80053; 82948; 85025; C1769 ×2; C1887; J2001; J2250; J3010; J7030; Q9967; U0002; 99152; 99153

== ENCOUNTER 2020-05-08 15:48 | Outpatient (RCR) | payer MEDICARE ==
[~2020-05-08 15:48] MED LIST changes: -CEFDINIR300 MG PO; -FENTANYL CITRATE/PF 100MCG/2 ML INJ ONE; -HEPARIN SOD/SOD CHLORIDE 2,000 ML ONE; -IOPAMIDOL 300MG/ML 100 ML INFUS..BTL IV ONE; -LIDOCAINE HCL 2% LOCAL 20 ML VIAL ONE; +LIDOCAINE VISC 2% SOLN 15 ML UDC ONE; +LIDOCAINE/PRILOCAINE 2.5-2.5% KIT ONE; -METOPROLOL TAR100 MG PO; -MIDAZOLAM HCL 2 MG/2 ML VIAL ONE; -NORVASC10 MG PO; -SODIUM CHLORIDE 0.9% 1000ML 1,000 ML ONE
[2020-05-08] MEDS ORDERED: MINERAL OIL/PETROLAT/GLYCERI 2OZ CRM ONE (16:41)
[2020-05-08] MEDS ORDERED: LIDOCAINE/PRILOCAINE 2.5-2.5% KIT ONE (16:41)
== END 2020-05-09 ==
LOC: WCC 15:48
PROVIDERS: ATTEND Family Medicine Adult Medicine
DX: E11.65 Type 2 diabetes mellitus with hyperglycemia (principal); R60.0 Localized edema; L97.811 Non-pressure chronic ulcer of other part of right lower leg limited to breakdown of skin; I70.238 Atherosclerosis of native arteries of right leg with ulceration of other part of lower leg; I79.8 Other disorders of arteries, arterioles and capillaries in diseases classified elsewhere; I87.2 Venous insufficiency (chronic) (peripheral); G99.0 Autonomic neuropathy in diseases classified elsewhere; I10 Essential (primary) hypertension; E78.2 Mixed hyperlipidemia
CPT/HCPCS: 36415; 82948

== ENCOUNTER → 2020-05-28 | Outpatient (CLI) | payer MEDICARE, OTHER ==
[~2020-05-28] MED LIST changes: +CEFDINIR300 MG PO; -LIDOCAINE VISC 2% SOLN 15 ML UDC ONE; -LIDOCAINE/PRILOCAINE 2.5-2.5% KIT ONE; +METOPROLOL TAR100 MG PO; +NORVASC10 MG PO
== END ==
LOC: RAD 14:09
PROVIDERS: ATTEND Internal Medicine Infectious Disease
DX: Z01.810 Encounter for preprocedural cardiovascular examination (principal)
CPT/HCPCS: 93306

== ENCOUNTER 2020-05-30 11:32 | Outpatient (RCR) | payer MEDICARE, OTHER ==
[2020-05-18 15:59] LABS: BASOPHILS % 0.3 % (0.0-1.0); EOSINOPHILS # (AUTO) 0.2 (0.0-0.4); EOSINOPHILS % 2.5 % (0.0-6.0); HEMATOCRIT 39.2 % (34.2-44.1); HEMOGLOBIN 12.7 g/dL (12.0-16.0); LYMPHOCYTES # (AUTO) 1.6 (1.0-3.2); LYMPHOCYTES % 18.1 % (18.0-39.1); MEAN CORPUSCULAR HGB CONC 32.4 g/dL (31-35); MEAN CORPUSCULAR VOLUME 95.6 fL (81-99); MONOCYTES # (AUTO) 0.8 (0.2-0.8); MONOCYTES % 8.6 % (4.4-11.3); NEUTROPHILS # (AUTO) 6.4 (2.1-6.9); NEUTROPHILS % 70.2 % (38.7-80.0); PLATELET COUNT 213 x10e3/uL (140-360); RED CELL DISTRIBUTION WIDTH 12.5 % (11.7-14.4)
[2020-05-18 16:17] LABS: ALBUMIN 4.1 g/dL (3.5-5.0); ALBUMIN/GLOBULIN RATIO 1.3 (0.8-2.0); ANION GAP 14.5 mmol/L (8-16); CALCIUM 9.3 mg/dL (8.4-10.2); CREATININE, SERUM 1.24 mg/dL (0.57-1.11); POTASSIUM 4.5 mmol/L (3.5-5.1)
--- NOTE | 2020-05-18 17:34 | Diagnostic Imaging Report ---
EXAMINATION: CHEST 2 VIEWS INDICATION: PRE -OP EXAM COMPARISON: None FINDINGS: TUBES and LINES: Left chest wall cardiac pacemaker. LUNGS: Normal lung volumes. Lungs are clear. No consolidations. PLEURA: No pleural effusion or pneumothorax. HEART AND MEDIASTINUM: The cardiomediastinal silhouette is within normal limits with atherosclerotic calcification of the thoracic aortic knob. BONES AND SOFT TISSUES: No acute osseous lesion. Soft tissues are unremarkable. UPPER ABDOMEN: No free air under the diaphragm. IMPRESSION: No acute thoracic radiographic abnormality. Signed by: Marlyn Fuller MD on 05/18/2020 5:31 PM
[~2020-05-30 11:32] MED LIST changes: -CEFDINIR300 MG PO; +LIDOCAINE VISC 2% SOLN 15 ML UDC ONE; +LIDOCAINE/PRILOCAINE 2.5-2.5% KIT ONE; -METOPROLOL TAR100 MG PO; +MINERAL OIL/PETROLAT/GLYCERI 6OZ BTL ONE; -NORVASC10 MG PO
[2020-06-04] MEDS ORDERED: METOPROLOL TAR100 MG PO (10:43)
[2020-06-04] MEDS ORDERED: NORVASC10 MG PO (10:43)
[2020-06-04] MEDS ORDERED: CEFDINIR300 MG PO (10:43)
== END 2020-06-09 ==
LOC: WCC 11:32
PROVIDERS: ATTEND Family Medicine Adult Medicine
DX: E11.621 Type 2 diabetes mellitus with foot ulcer (principal); E11.65 Type 2 diabetes mellitus with hyperglycemia; L97.418 Non-pressure chronic ulcer of right heel and midfoot with other specified severity; I87.2 Venous insufficiency (chronic) (peripheral); I79.8 Other disorders of arteries, arterioles and capillaries in diseases classified elsewhere; R60.0 Localized edema; G99.0 Autonomic neuropathy in diseases classified elsewhere; I10 Essential (primary) hypertension; E78.2 Mixed hyperlipidemia
CPT/HCPCS: 36415 ×2; 71046; 80053; 82948; 83036; 84134; 85025; 93922; 99203; 99212; 99213 ×2; 99214; G0277

== ENCOUNTER 2020-06-02 10:20 | Inpatient (IN) | payer MEDICARE, OTHER ==
[~2020-06-02] VITALS: Ht 157.5 cm; Wt 68.0 kg
[~2020-06-02 10:20] MED LIST changes: -LIDOCAINE VISC 2% SOLN 15 ML UDC ONE; -LIDOCAINE/PRILOCAINE 2.5-2.5% KIT ONE; -MINERAL OIL/PETROLAT/GLYCERI 6OZ BTL ONE
[2020-06-02] MEDS ORDERED: SODIUM CHLORIDE 0.9% 1000ML 1,000 ML IV STA ×2 (10:38→12:48)
[2020-06-02 11:01] LABS: BASOPHILS % 0.2 % (0.0-1.0); EOSINOPHILS # (AUTO) 0.1 (0.0-0.4); EOSINOPHILS % 0.9 % (0.0-6.0); HEMATOCRIT 41.6 % (34.2-44.1); HEMOGLOBIN 13.5 g/dL (12.0-16.0); LYMPHOCYTES % 8.1 % (18.0-39.1); MEAN CORPUSCULAR HGB CONC 32.5 g/dL (31-35); MEAN CORPUSCULAR VOLUME 95.4 fL (81-99); MONOCYTES # (AUTO) 0.7 (0.2-0.8); MONOCYTES % 5.3 % (4.4-11.3); NEUTROPHILS # (AUTO) 10.7 (2.1-6.9); PLATELET COUNT 222 x10e3/uL (140-360); RED BLOOD COUNT 4.36 x10e6/uL (3.6-5.1); RED CELL DISTRIBUTION WIDTH 12.7 % (11.7-14.4)
[2020-06-02 11:14] LABS: PROTHROMBIN TIME 13.7 seconds (11.9-14.5)
[2020-06-02 11:15] LABS: PARTIAL THROMBOPLASTIN TIME 24.5 seconds (23.8-35.5)
[2020-06-02 11:28] LABS: ALBUMIN 4.2 g/dL (3.5-5.0); ALBUMIN/GLOBULIN RATIO 1.4 (0.8-2.0); ANION GAP 17.8 mmol/L (8-16); CALCIUM 9.2 mg/dL (8.4-10.2); CREATININE, SERUM 1.45 mg/dL (0.57-1.11); MAGNESIUM 2.1 MG/DL (1.3-2.1); POTASSIUM 3.8 mmol/L (3.5-5.1)
[2020-06-02] MEDS ORDERED: METOPROLOL TARTRATE INJ 1 MG/ML VIAL IV ONE ×2 (11:30→11:45)
[2020-06-02 11:33] LABS: B-TYPE NATRIURETIC PEPTIDE2 156.9 pg/mL (0-100)
[2020-06-02] MEDS ORDERED: MORPHINE SULFATE 2 MG/ML SYR 1ML IV STA (11:35)
[2020-06-02] MEDS ORDERED: ONDANSETRON HCL INJ 2MG/ML 2ML 2 MG/ML VIAL IV STA (11:35)
[2020-06-02 11:49] LABS: CREATINE KINASE MB 2.8 ng/mL (0-5.0); THYROID STIMULATING HORMONE 1.848 uIU/mL (0.350-4.940)
[2020-06-02] MEDS ORDERED: DILTIAZEM HCL 5 MG/ML 5 ML VIAL IV STA (12:28)
[2020-06-02] MEDS ORDERED: ADENOSINE 6 MG/2 ML VIAL IV ONE (12:45)
[2020-06-02] MEDS ORDERED: HEPARIN 25,000 UNIT DRIP IV ONE (12:47)
[2020-06-02] MEDS ORDERED: SODIUM CHLORIDE 0.9% 1000ML 1,000 ML ONE (12:55)
[2020-06-02] MEDS ORDERED: PIPER-TAZ 3.375 GM 50 ML IV ONE (13:00)
[2020-06-02] MEDS ORDERED: HEPARIN 25,000 UNIT 1,000 UNIT in DEXTROSE 5% 250ML 250 ML IV SCH (13:00)
[2020-06-02] MEDS ORDERED: HEPARIN SOD (PORCINE) 5,000 UNIT/ML VIAL IV ONE (13:00)
[2020-06-02] MEDS ORDERED: ACETAMINOPHEN 325 MG TAB PO PRN ×2 (13:30→16:45)
[2020-06-02] MEDS ORDERED: ONDANSETRON HCL INJ 2MG/ML 2ML 2 MG/ML VIAL IV PRN ×2 (13:30→16:45)
[2020-06-02 14:21] LABS: CLARITY,URINE HAZY (CLEAR); COLOR,URINE YELLOW (YELLOW)
[2020-06-02 14:22] LABS: BILIRUBIN,URINE NEGATIVE (NEGATIVE); KETONES,URINE NEGATIVE (NEGATIVE); LEUKOCYTE ESTERASE ,URINE TRACE (NEGATIVE); NITRITE,URINE NEGATIVE (NEGATIVE); PROTEIN,URINE DIPSTICK NEGATIVE (NEGATIVE); URINE UROBILINOGEN 0.2 mg/dL (0.2 - 1)
[2020-06-02 14:24] LABS: AMORPHOUS SEDIMENT,URINE FEW (FEW); BACTERIA,URINE MODERATE /HPF; EPITHELIAL CELLS,URINE FEW /LPF; WBC,URINE (MAN) 21-50 /HPF (0-5)
[2020-06-02 16:31] VITALS: BP 143/60
[2020-06-02] MEDS ORDERED: MELATONIN 5 MG TABLET PO PRN (16:45)
[2020-06-02] MEDS ORDERED: DOCUSATE SODIUM 100 MG CAP PO PRN (16:45)
[2020-06-02] MEDS ORDERED: POLYETHYLENE GLYCOL 3350 17 GM PACK PO PRN (16:45)
[2020-06-02] MEDS ORDERED: BENZONATATE 100 MG CAP PO PRN (16:45)
[2020-06-02] MEDS ORDERED: HYDRALAZINE HCL 20 MG/ML VIAL IV PRN (16:45)
[2020-06-02] MEDS ORDERED: DEXTROSE 50% SYRINGE 50 ML IV PRN (16:45)
[2020-06-02] MEDS ORDERED: GUAIFENESIN/CODEINE 10 ML CUP PO PRN (16:45)
[2020-06-02] MEDS ORDERED: ENOXAPARIN SOD INJ 40 MG/0.4 ML SYR SC SCH (17:00)
[2020-06-02 17:45] VITALS: BP 143/60
[2020-06-02 18:27] LABS: CREATINE KINASE MB 4.6 ng/mL (0-5.0)
[2020-06-02] MEDS ORDERED: METOPROLOL TARTRATE 25 MG TAB PO SCH (20:00)
[2020-06-02 20:49] VITALS: BP 134/58
[2020-06-02] MEDS: SODIUM CHLORIDE 0.9% 1000ML 1,000 ML IV SCH (20:57)
[2020-06-02 21:13] VITALS: BP 134/58
[2020-06-03] VITALS (10 sets, daily range): BP systolic 128–182; BP diastolic 57–91
[2020-06-03 06:12] LABS: BASOPHILS % 0.2 % (0.0-1.0); EOSINOPHILS # (AUTO) 0.2 (0.0-0.4); EOSINOPHILS % 2.8 % (0.0-6.0); HEMOGLOBIN 12.1 g/dL (12.0-16.0); LYMPHOCYTES # (AUTO) 1.6 (1.0-3.2); LYMPHOCYTES % 20.2 % (18.0-39.1); MEAN CORPUSCULAR HGB CONC 32.7 g/dL (31-35); MEAN CORPUSCULAR VOLUME 97.9 fL (81-99); MONOCYTES # (AUTO) 0.6 (0.2-0.8); NEUTROPHILS # (AUTO) 5.6 (2.1-6.9); NEUTROPHILS % 69.4 % (38.7-80.0); PLATELET COUNT 174 x10e3/uL (140-360); RED BLOOD COUNT 3.78 x10e6/uL (3.6-5.1); RED CELL DISTRIBUTION WIDTH 12.9 % (11.7-14.4)
[2020-06-03 07:10] LABS: ALBUMIN 3.6 g/dL (3.5-5.0); ALBUMIN/GLOBULIN RATIO 1.3 (0.8-2.0); ANION GAP 13.2 mmol/L (8-16); CALCIUM 8.8 mg/dL (8.4-10.2); CHOL/HDL RATIO 4.3 (3.0-3.6); POTASSIUM 4.2 mmol/L (3.5-5.1)
[2020-06-03 08:31] LABS: CREATINE KINASE MB 5.4 ng/mL (0-4.3)
[2020-06-03] MEDS: SODIUM CHLORIDE 0.9% 1000ML 1,000 ML IV SCH (08:39)
[2020-06-03] MEDS: PANTOPRAZOLE SOD 40 MG TABEC PO SCH (09:09)
[2020-06-03] MEDS: METOPROLOL TARTRATE 25 MG TAB PO SCH ×2 (10:46→21:01)
[2020-06-03] MEDS ORDERED: ONDANSETRON HCL 4 MG ORAL DISINTEGRATING TAB PO PRN (13:45)
[2020-06-03] MEDS ORDERED: CEFTRIAXONE SOD 1 GM/NS 50 ML 50 ML IV SCH (16:30)
[2020-06-03] MEDS: LOSARTAN POTASSIUM 100 MG TAB PO SCH (17:26)
[2020-06-03] MEDS: HYDROCODONE/APAP 5MG-325MG TAB PO PRN (20:42)
[2020-06-03] MEDS ORDERED: SIMVASTATIN 40 MG TAB PO SCH (21:00)
[2020-06-03] MEDS: MORPHINE SULFATE 2 MG/ML SYR 1ML IV PRN (22:45)
[2020-06-04] MEDS: AMLODIPINE BESYLATE 10 MG TAB PO SCH ×2 (01:54→09:29)
[2020-06-04 02:30] VITALS: BP 157/73
[2020-06-04] MEDS: MORPHINE SULFATE 2 MG/ML SYR 1ML IV PRN (04:18)
[2020-06-04 05:21] VITALS: BP 147/69
[2020-06-04 08:20] VITALS: BP 137/63
[2020-06-04] MEDS ORDERED: SITAGLIPTIN 100 MG TAB PO SCH (09:00)
[2020-06-04] MEDS ORDERED: CLOPIDOGREL BISULFATE 75 MG TAB PO SCH (09:00)
[2020-06-04] MEDS ORDERED: EZETIMIBE 10 MG TAB PO SCH (09:00)
[2020-06-04] MEDS ORDERED: CITALOPRAM HYDROBROMIDE 20 MG TAB PO SCH (09:00)
[2020-06-04] MEDS ORDERED: ISOSORBIDE MONONITRATE 30 MG TAB CR PO SCH ×2 (09:00)
[2020-06-04] MEDS: PANTOPRAZOLE SOD 40 MG TABEC PO SCH (09:27)
[2020-06-04] MEDS: LOSARTAN POTASSIUM 100 MG TAB PO SCH (09:28)
[2020-06-04] MEDS: METOPROLOL TARTRATE 25 MG TAB PO SCH (09:28)
[2020-06-04] MEDS: HYDROCODONE/APAP 5MG-325MG TAB PO PRN (09:30)
[2020-06-04 09:33] VITALS: BP 137/63
[2020-06-04] MEDS ORDERED: METOPROLOL TAR100 MG PO (10:43)
[2020-06-04] MEDS ORDERED: NORVASC10 MG PO (10:43)
[2020-06-04] MEDS ORDERED: CEFDINIR300 MG PO (10:43)
[2020-06-04 11:39] VITALS: BP 122/53
[2020-06-04] MEDS ORDERED: PERFLUTREN LIPID MICROSPHERES 2 ML VIAL IV ONE (12:02)
== END 2020-06-04 13:13 | disposition home or self-care (01) | DRG 281 ==
LOC: ER 10:30 → ERHOLD 13:48 → MED/SURG2 16:15
PROVIDERS: ADMIT Internal Medicine; ATTEND Internal Medicine
DX: I47.1 Supraventricular tachycardia (principal); I21.A1 Myocardial infarction type 2; N39.0 Urinary tract infection, site not specified; E11.51 Type 2 diabetes mellitus with diabetic peripheral angiopathy without gangrene; N18.9 Chronic kidney disease, unspecified; B96.20 Unspecified Escherichia coli [E. coli] as the cause of diseases classified elsewhere; Z11.59 Encounter for screening for other viral diseases; I25.10 Atherosclerotic heart disease of native coronary artery without angina pectoris; Z95.0 Presence of cardiac pacemaker; I12.9 Hypertensive chronic kidney disease with stage 1 through stage 4 chronic kidney disease, or unspecified chronic kidney disease; E11.22 Type 2 diabetes mellitus with diabetic chronic kidney disease
CPT/HCPCS: 36415; 70450; 71045; 78582; 80053; 80061; 81001; 82550; 82553; 82948; 83605; 83735; 83880; 84443; 84484; 85025; 85379; 85610; 85730; 87040; 87086; 87186; 93005; 93306; 93308; 99251; 99284; J0153; J0360; J0696; J1644; J2270; J2405; J2543; J7030; U0002

== ENCOUNTER → 2020-06-12 | Day surgery (SDC) | payer MEDICARE ==
[~2020-06-12] MED LIST changes: +CEFDINIR300 MG PO; +DEXAMETHASONE PHOS 24 MG/ML 10ML VIAL ONE; +DEXTROSE 5% 250ML 0 ML IV ONE; +DEXTROSE 50% SYRINGE 50 ML IV ONE; +METOPROLOL TAR100 MG PO; +NORVASC10 MG PO; +OFLOXACIN 0.3% (OTIC SOL) 5 ML BTL ONE; +ONDANSETRON HCL INJ 2MG/ML 2ML 2 MG/ML VIAL ONE; +SEVOFLURANE INHAL SOLN 250 ML PEN BTL ONE
--- NOTE | 2020-06-12 02:53 | Pre Op History & Physical ---
DATE OF SURGERY: June 12, 2020. CHIEF COMPLAINT: Eustachian tube dysfunction, difficulty with hyperbaric oxygen treatments. HISTORY OF PRESENT ILLNESS: This 74-year-old female is on HBO for right foot problem. The patient has difficulty with pressure equalization more worse on the left side. The patient during the dive had trouble with her hearing. When seen, no hearing has improved. The patient denies any tinnitus, she has no vertigo. She has no surgery to the ear before. The patient has history of coronary artery disease and has peripheral vascular disease. REVIEW OF SYSTEMS: System review showed no recent cardiovascular respiratory GI problem. PAST MEDICAL HISTORY: The patient has type 2 diabetes, hypertension and coronary artery disease. PAST SURGICAL HISTORY: She has stent in her heart. ALLERGIES: SHE HAS NO KNOWN ALLERGY TO MEDICATION. MEDICATIONS: She is on Plavix along with other medication as listed. SOCIAL HISTORY: She is a nonsmoker and nondrinker. FAMILY HISTORY: Noncontributory. PHYSICAL EXAMINATION: VITAL SIGNS: On examination, the patient's vital signs were within normal limits. She was seen with her son. Her communication was done through an chucking lathe operator. HEENT: Ear exam showed negative pressure on the right side and effusion on the left. Nasal exam showed deviated nasal septum, left side about 20%. Oropharynx and oral cavity show 2+ tonsils bilaterally with Mallampati level 2. NECK: Showed no lymph node or thyroid palpable. CHEST: Showed good air entry bilaterally. CARDIOVASCULAR: Showed S1, S2. No murmur noted. DIGITAL RECRUITER: Showed cranial nerves II through XII were within normal limits. AUDIOGRAM: Ms. Pemberton showed that she has moderate to severe sloping symmetrical sensorineural hearing loss. Speech discrimination of 80% on the right side, 84% on the left. ASSESSMENT AND PLAN: Ms. Vuong has eustachian tube dysfunction, difficulty equalizing the pressure during hyperbaric oxygen treatment. Suggested treatment is bilateral myringotomy tubes and other necessary procedure. Complication of procedure includes, but not limited to bleeding, infection, TM perforation, persistent drainage from the ear, hearing loss, persistent recurrence of the problem. Alternatives will be continued observation myringotomy and tubes in the office setting. The patient has been advised to stop her Plavix and aspirin at least 5-7 days before surgery if that was okay with her acute care assistant, Dr. Harden. The patient has elected to undergo surgical procedure. MD JOHN Swann/CARYN /[id number]
[2020-06-12 09:20] VITALS: BP 142/71
--- NOTE | 2020-06-13 02:39 | Operative Report ---
DATE OF PROCEDURE: 06/12/2020 SURGEON: Octavio Wolfe MD CHIEF COMPLAINT: Eustachian tube dysfunction. POSTOPERATIVE DIAGNOSIS: Eustachian tube dysfunction. OPERATIVE PROCEDURE: Bilateral myringotomy and tubes. ANESTHESIA: Dr. Augustin. HISTORY OF PRESENT ILLNESS: This 74-year-old female has history of eustachian tube dysfunction. The patient required hyperbaric oxygen treatment and has difficulty during the dive. On examination, she was noted to have an effusion in the left ear with negative pressure on the right. The patient's hyperbaric oxygen treatment would not be over for sometime. It was decided that bilateral myringotomy tubes and other necessary procedure will be beneficial for her. DESCRIPTION OF PROCEDURE: The patient was taken to the operating room, put under general anesthesia, LMA airway created. The right ear was examined. The ear canal was debrided. The ear myringotomy was done in anterior superior quadrant. No effusion was noted in the middle ear cleft. Fox grommet tube was inserted. Similar procedure was carried on the left side. Again, after the ear canal was debrided, a myringotomy was done in anterior superior quadrant. No effusion was noted in the mid middle ear cleft. Fox grommet tube was inserted. The patient tolerated the above procedure well with minimal blood loss. She was able to be transferred to recovery room in stable condition. Octavio Wolfe MD DKH/MODL /[id number]
== END | disposition home or self-care (01) ==
LOC: OR 05:37
PROVIDERS: ATTEND Otolaryngology Otolaryngology/Facial Plastic Surgery
DX: H69.83 Other specified disorders of Eustachian tube, bilateral (principal); E11.22 Type 2 diabetes mellitus with diabetic chronic kidney disease; I12.9 Hypertensive chronic kidney disease with stage 1 through stage 4 chronic kidney disease, or unspecified chronic kidney disease; N18.9 Chronic kidney disease, unspecified; I25.810 Atherosclerosis of coronary artery bypass graft(s) without angina pectoris; I44.7 Left bundle-branch block, unspecified; Z01.810 Encounter for preprocedural cardiovascular examination; Z01.812 Encounter for preprocedural laboratory examination; Z11.59 Encounter for screening for other viral diseases; Z79.02 Long term (current) use of antithrombotics/antiplatelets; Z79.82 Long term (current) use of aspirin; Z79.84 Long term (current) use of oral hypoglycemic drugs; Z95.5 Presence of coronary angioplasty implant and graft; Z95.1 Presence of aortocoronary bypass graft; Z95.0 Presence of cardiac pacemaker
CPT/HCPCS: 36415; 69436; 82948; 93005 ×2; J2405; J7799; U0002; J7070

== ENCOUNTER → 2020-07-09 | Outpatient (RCR) | payer MEDICARE ==
[~2020-07-09] MED LIST changes: -DEXAMETHASONE PHOS 24 MG/ML 10ML VIAL ONE; -DEXTROSE 5% 250ML 0 ML IV ONE; -DEXTROSE 50% SYRINGE 50 ML IV ONE; +LIDOCAINE/PRILOCAINE 2.5-2.5% KIT ONE; +MINERAL OIL/PETROLAT/GLYCERI 6OZ BTL ONE; -OFLOXACIN 0.3% (OTIC SOL) 5 ML BTL ONE; -ONDANSETRON HCL INJ 2MG/ML 2ML 2 MG/ML VIAL ONE; -SEVOFLURANE INHAL SOLN 250 ML PEN BTL ONE
== END ==
LOC: WCC 06-13 12:54
PROVIDERS: ATTEND Podiatrist Foot & Ankle Surgery
DX: E11.621 Type 2 diabetes mellitus with foot ulcer (principal); E11.65 Type 2 diabetes mellitus with hyperglycemia; L97.418 Non-pressure chronic ulcer of right heel and midfoot with other specified severity; I87.2 Venous insufficiency (chronic) (peripheral); I79.8 Other disorders of arteries, arterioles and capillaries in diseases classified elsewhere; R60.0 Localized edema; I10 Essential (primary) hypertension; G99.0 Autonomic neuropathy in diseases classified elsewhere; E78.2 Mixed hyperlipidemia; Z01.810 Encounter for preprocedural cardiovascular examination; Z01.811 Encounter for preprocedural respiratory examination
CPT/HCPCS: 15275; 36415 ×13; 82948 ×14; 99212 ×2; 99213 ×9; G0277 ×16; Q4186

== ENCOUNTER → 2020-08-09 | Outpatient (RCR) | payer MEDICARE ==
[~2020-08-09] MED LIST changes: +B&O 60MG R/S 60 MG SUPP PR ONE; +BOTULINUM TOXIN TYPE A 100 UNIT VIAL IM ONE; +IOPAMIDOL 300MG/ML 50ML INFUS..BTL IV ONE; +LIDOCAINE VISC 2% SOLN 15 ML UDC ONE; -MINERAL OIL/PETROLAT/GLYCERI 6OZ BTL ONE
== END ==
LOC: WCC 07-10 12:53
PROVIDERS: ATTEND Podiatrist Foot & Ankle Surgery
DX: E11.621 Type 2 diabetes mellitus with foot ulcer (principal); E11.65 Type 2 diabetes mellitus with hyperglycemia; L97.418 Non-pressure chronic ulcer of right heel and midfoot with other specified severity; I79.8 Other disorders of arteries, arterioles and capillaries in diseases classified elsewhere; I87.2 Venous insufficiency (chronic) (peripheral); R60.0 Localized edema; I10 Essential (primary) hypertension; G99.0 Autonomic neuropathy in diseases classified elsewhere; E78.2 Mixed hyperlipidemia; Z01.810 Encounter for preprocedural cardiovascular examination; Z01.811 Encounter for preprocedural respiratory examination
CPT/HCPCS: 15275 ×3; 36415 ×18; 82948 ×18; 99213 ×5; G0277 ×4; J0587; Q4186 ×3; Q9967

== ENCOUNTER 2020-09-07 15:29 | Outpatient (RCR) | payer MEDICARE ==
[~2020-09-07 15:29] MED LIST changes: -B&O 60MG R/S 60 MG SUPP PR ONE; -BOTULINUM TOXIN TYPE A 100 UNIT VIAL IM ONE; -IOPAMIDOL 300MG/ML 50ML INFUS..BTL IV ONE; -LIDOCAINE VISC 2% SOLN 15 ML UDC ONE; +MINERAL OIL/PETROLAT/GLYCERI 6OZ BTL ONE
== END 2020-09-09 ==
LOC: WCC 15:29
PROVIDERS: ATTEND Podiatrist Foot & Ankle Surgery
DX: E11.621 Type 2 diabetes mellitus with foot ulcer (principal); E11.65 Type 2 diabetes mellitus with hyperglycemia; L97.418 Non-pressure chronic ulcer of right heel and midfoot with other specified severity; L97.411 Non-pressure chronic ulcer of right heel and midfoot limited to breakdown of skin; I87.2 Venous insufficiency (chronic) (peripheral); I79.8 Other disorders of arteries, arterioles and capillaries in diseases classified elsewhere; I10 Essential (primary) hypertension; G99.0 Autonomic neuropathy in diseases classified elsewhere; E78.2 Mixed hyperlipidemia; Z01.810 Encounter for preprocedural cardiovascular examination; Z01.811 Encounter for preprocedural respiratory examination
CPT/HCPCS: 11042; 15271; 15275 ×3; 36415 ×17; 82948 ×18; 99211; 99212 ×4; 99213 ×10; G0277 ×30; Q4186 ×4

== ENCOUNTER 2020-10-02 14:22 | Outpatient (RCR) | payer MEDICARE ==
[~2020-10-02 14:22] MED LIST changes: +LIDOCAINE VISC 2% SOLN 15 ML UDC ONE; -LIDOCAINE/PRILOCAINE 2.5-2.5% KIT ONE; +MINERAL OIL/PETROLAT/GLYCERI 2OZ CRM ONE; -MINERAL OIL/PETROLAT/GLYCERI 6OZ BTL ONE; +TRIAMCINOLONE ACET 0.1% CREAM 15 GM TUBE ONE
== END 2020-10-07 ==
LOC: WCC 14:22
PROVIDERS: ATTEND Podiatrist Foot & Ankle Surgery
DX: E11.621 Type 2 diabetes mellitus with foot ulcer (principal); E11.65 Type 2 diabetes mellitus with hyperglycemia; L97.428 Non-pressure chronic ulcer of left heel and midfoot with other specified severity; L97.418 Non-pressure chronic ulcer of right heel and midfoot with other specified severity; I87.2 Venous insufficiency (chronic) (peripheral); I79.8 Other disorders of arteries, arterioles and capillaries in diseases classified elsewhere; I10 Essential (primary) hypertension; G99.0 Autonomic neuropathy in diseases classified elsewhere; E78.2 Mixed hyperlipidemia; Z01.810 Encounter for preprocedural cardiovascular examination; Z01.811 Encounter for preprocedural respiratory examination
CPT/HCPCS: 15275 ×2; 36415 ×7; 82948 ×7; 99212; 99213 ×10; G0277 ×6; Q4186 ×2

== ENCOUNTER 2020-10-30 14:50 | Outpatient (RCR) | payer MEDICARE ==
[~2020-10-30 14:50] MED LIST changes: +LIDOCAINE/PRILOCAINE 2.5-2.5% KIT ONE; -MINERAL OIL/PETROLAT/GLYCERI 2OZ CRM ONE; -TRIAMCINOLONE ACET 0.1% CREAM 15 GM TUBE ONE
== END 2020-11-07 ==
LOC: WCC 14:50
PROVIDERS: ATTEND Podiatrist Foot & Ankle Surgery
DX: E11.621 Type 2 diabetes mellitus with foot ulcer (principal); E11.65 Type 2 diabetes mellitus with hyperglycemia; L97.418 Non-pressure chronic ulcer of right heel and midfoot with other specified severity; I87.2 Venous insufficiency (chronic) (peripheral); I79.8 Other disorders of arteries, arterioles and capillaries in diseases classified elsewhere; G99.0 Autonomic neuropathy in diseases classified elsewhere; I10 Essential (primary) hypertension; E78.2 Mixed hyperlipidemia; Z01.810 Encounter for preprocedural cardiovascular examination; Z01.811 Encounter for preprocedural respiratory examination

== ENCOUNTER 2020-12-04 15:41 | Outpatient (RCR) | payer MEDICARE ==
[~2020-12-04 15:41] MED LIST changes: -LIDOCAINE/PRILOCAINE 2.5-2.5% KIT ONE; +MINERAL OIL/PETROLAT/GLYCERI 6OZ BTL ONE
== END 2020-12-07 ==
LOC: WCC 15:41
PROVIDERS: ATTEND Podiatrist Foot & Ankle Surgery
DX: E11.621 Type 2 diabetes mellitus with foot ulcer (principal); E11.65 Type 2 diabetes mellitus with hyperglycemia; L97.418 Non-pressure chronic ulcer of right heel and midfoot with other specified severity; I79.8 Other disorders of arteries, arterioles and capillaries in diseases classified elsewhere; I87.2 Venous insufficiency (chronic) (peripheral); G99.0 Autonomic neuropathy in diseases classified elsewhere; I10 Essential (primary) hypertension; E78.2 Mixed hyperlipidemia; Z01.810 Encounter for preprocedural cardiovascular examination; Z01.811 Encounter for preprocedural respiratory examination

== ENCOUNTER 2020-12-18 08:11 | Inpatient (IN) | payer MEDICARE ==
[~2020-12-18] VITALS: Ht 157.5 cm; Wt 68.0 kg
[~2020-12-18 08:11] MED LIST changes: -LIDOCAINE VISC 2% SOLN 15 ML UDC ONE; -MINERAL OIL/PETROLAT/GLYCERI 6OZ BTL ONE
[2020-12-18 08:34] LABS: BASOPHILS % 0.3 % (0.0-1.0); EOSINOPHILS # (AUTO) 0.4 (0.0-0.4); EOSINOPHILS % 4.7 % (0.0-6.0); HEMATOCRIT 36.6 % (34.2-44.1); HEMOGLOBIN 11.9 g/dL (12.0-16.0); LYMPHOCYTES # (AUTO) 0.7 (1.0-3.2); LYMPHOCYTES % 8.5 % (18.0-39.1); MEAN CORPUSCULAR HEMOGLOBIN 30.7 pg (28-32); MEAN CORPUSCULAR HGB CONC 32.5 g/dL (31-35); MEAN CORPUSCULAR VOLUME 94.6 fL (81-99); MONOCYTES # (AUTO) 0.5 (0.2-0.8); MONOCYTES % 6.9 % (4.4-11.3); NEUTROPHILS # (AUTO) 6.2 (2.1-6.9); NEUTROPHILS % 79.2 % (38.7-80.0); PLATELET COUNT 161 x10e3/uL (140-360); RED BLOOD COUNT 3.87 x10e6/uL (3.6-5.1); RED CELL DISTRIBUTION WIDTH 12.5 % (11.7-14.4)
[2020-12-18 08:49] LABS: INR 0.95; PROTHROMBIN TIME 13.3 seconds (11.9-14.5)
[2020-12-18 08:56] LABS: ALBUMIN/GLOBULIN RATIO 1.4 (0.8-2.0); ANION GAP 13.2 mmol/L (8-16); CREATININE, SERUM 1.07 mg/dL (0.57-1.11); POTASSIUM 3.2 mmol/L (3.5-5.1)
[2020-12-18 09:25] LABS: SALICYLATE < 5.0 mg/dL (0-30)
[2020-12-18 09:33] LABS: CLARITY,URINE CLEAR (CLEAR); COLOR,URINE YELLOW (YELLOW); KETONES,URINE NEGATIVE (NEGATIVE); LEUKOCYTE ESTERASE ,URINE NEGATIVE (NEGATIVE); NITRITE,URINE NEGATIVE (NEGATIVE); PROTEIN,URINE DIPSTICK NEGATIVE (NEGATIVE)
[2020-12-18 09:34] LABS: AMPHETAMINES SCREEN,URINE NEGATIVE (NEGATIVE); BENZODIAZEPINES SCREEN,URINE NEGATIVE (NEGATIVE); PHENCYCLIDINE SCREEN,URINE NEGATIVE (NEGATIVE); URINE UROBILINOGEN 0.2 mg/dL (0.2 - 1)
[2020-12-18 10:02] LABS: EPITHELIAL CELLS,URINE FEW /LPF; WBC,URINE (MAN) 0-5 /HPF (0-5)
[2020-12-18] MEDS ORDERED: TRAMADOL HCL 50 MG TAB PO PRN (12:15)
[2020-12-18] MEDS ORDERED: ALPRAZOLAM0.5 M1 PO (12:26)
[2020-12-18] MEDS ORDERED: NEURONTIN300 MG PO (12:26)
[2020-12-18] MEDS ORDERED: DEXTROSE 50% SYRINGE 50 ML IV PRN (14:15)
[2020-12-18 14:40] VITALS: BP 145/64
[2020-12-18 14:48] VITALS: BP 145/64
[2020-12-18 14:50] LABS: FREE T4 (FREE THYROXINE) 0.83 ng/dL (0.8-1.8); THYROID STIMULATING HORMONE 1.754 uIU/mL (0.350-4.940)
[2020-12-18 16:27] VITALS: BP 137/63
[2020-12-18] MEDS: INSULIN LISPRO 100 UNIT/1 ML 3ML VIAL SQ SCH ×2 (16:30→21:00)
[2020-12-18] MEDS: METOPROLOL TARTRATE 50 MG TAB PO SCH (17:15)
[2020-12-18] MEDS: METFORMIN HCL 500 MG TAB CR PO SCH (17:15)
[2020-12-18 20:00] VITALS: BP 149/63
[2020-12-19] VITALS (7 sets, daily range): BP systolic 123–152; BP diastolic 58–67
[2020-12-19 04:46] LABS: BASOPHILS % 0.4 % (0.0-1.0); EOSINOPHILS # (AUTO) 0.5 (0.0-0.4); EOSINOPHILS % 6.5 % (0.0-6.0); HEMATOCRIT 38.8 % (34.2-44.1); HEMOGLOBIN 12.6 g/dL (12.0-16.0); LYMPHOCYTES # (AUTO) 1.4 (1.0-3.2); LYMPHOCYTES % 19.1 % (18.0-39.1); MEAN CORPUSCULAR HEMOGLOBIN 30.4 pg (28-32); MEAN CORPUSCULAR HGB CONC 32.5 g/dL (31-35); MEAN CORPUSCULAR VOLUME 93.5 fL (81-99); MONOCYTES # (AUTO) 0.5 (0.2-0.8); NEUTROPHILS # (AUTO) 4.8 (2.1-6.9); NEUTROPHILS % 66.7 % (38.7-80.0); PLATELET COUNT 168 x10e3/uL (140-360); RED BLOOD COUNT 4.15 x10e6/uL (3.6-5.1); RED CELL DISTRIBUTION WIDTH 12.5 % (11.7-14.4)
[2020-12-19 05:05] LABS: ANION GAP 15.6 mmol/L (8-16); BLOOD UREA NITROGEN 20 mg/dL (7-26); BUN/CREATININE RATIO 24 (6-25); CALCIUM 9.1 mg/dL (8.4-10.2); CARBON DIOXIDE 26 mmol/L (22-29); CHLORIDE 107 mmol/L (98-107); CREATININE, SERUM 0.83 mg/dL (0.57-1.11); EST GLOMERULAR FILTRATION RATE > 60 ML/MIN (60-); GLUCOSE 83 mg/dL (74-118); POTASSIUM 3.6 mmol/L (3.5-5.1); SODIUM 145 mmol/L (136-145)
[2020-12-19] MEDS: INSULIN LISPRO 100 UNIT/1 ML 3ML VIAL SQ SCH ×4 (07:30→21:00)
[2020-12-19] MEDS: METFORMIN HCL 500 MG TAB CR PO SCH ×2 (08:00→17:32)
[2020-12-19] MEDS ORDERED: SITAGLIPTIN 100 MG TAB PO SCH (09:00)
[2020-12-19] MEDS: CITALOPRAM HYDROBROMIDE 20 MG TAB PO SCH (10:15)
[2020-12-19] MEDS: LOSARTAN POTASSIUM 100 MG TAB PO SCH (10:15)
[2020-12-19] MEDS: METOPROLOL TARTRATE 50 MG TAB PO SCH ×2 (10:16→17:34)
[2020-12-19] MEDS: ISOSORBIDE MONONITRATE 30 MG TAB CR PO SCH (10:16)
[2020-12-19] MEDS: AMLODIPINE BESYLATE 10 MG TAB PO SCH (10:16)
[2020-12-19] MEDS: EZETIMIBE 10 MG TAB PO SCH (10:17)
[2020-12-19] MEDS: CLOPIDOGREL BISULFATE 75 MG TAB PO SCH (10:17)
[2020-12-20] VITALS: BP 139/68
[2020-12-20 04:00] VITALS: BP 145/52
[2020-12-20] MEDS: INSULIN LISPRO 100 UNIT/1 ML 3ML VIAL SQ SCH ×3 (07:30→16:30)
[2020-12-20 08:00] VITALS: BP 134/51
[2020-12-20 08:53] VITALS: BP 134/51
[2020-12-20] MEDS ORDERED: AMLODIPINE BESY10 MG PO ×2 (09:25→17:02)
[2020-12-20 11:54] VITALS: BP 128/59
[2020-12-20] MEDS: METFORMIN HCL 500 MG TAB CR PO SCH ×2 (12:36→18:24)
[2020-12-20] MEDS: CITALOPRAM HYDROBROMIDE 20 MG TAB PO SCH (12:36)
[2020-12-20] MEDS: ISOSORBIDE MONONITRATE 30 MG TAB CR PO SCH (12:37)
[2020-12-20] MEDS: LOSARTAN POTASSIUM 100 MG TAB PO SCH (12:37)
[2020-12-20] MEDS: CLOPIDOGREL BISULFATE 75 MG TAB PO SCH (12:38)
[2020-12-20] MEDS: EZETIMIBE 10 MG TAB PO SCH (12:38)
[2020-12-20] MEDS: METOPROLOL TARTRATE 50 MG TAB PO SCH ×2 (12:38→18:25)
[2020-12-20] MEDS: AMLODIPINE BESYLATE 10 MG TAB PO SCH (12:38)
[2020-12-20 17:16] VITALS: BP 114/56
== END 2020-12-20 18:20 | disposition home or self-care (01) | DRG 637 ==
LOC: ER 08:22 → ERHOLD 09:59 → MED/SURG 13:56 → OBSVTOIN 12-19 14:52 → INTOOBSV 12-19 15:00
PROVIDERS: ADMIT Internal Medicine; ATTEND Internal Medicine
DX: E11.649 Type 2 diabetes mellitus with hypoglycemia without coma (principal); G93.41 Metabolic encephalopathy; Z20.822 Contact with and (suspected) exposure to COVID-19; E11.51 Type 2 diabetes mellitus with diabetic peripheral angiopathy without gangrene; Z79.899 Other long term (current) drug therapy; E11.40 Type 2 diabetes mellitus with diabetic neuropathy, unspecified; I25.10 Atherosclerotic heart disease of native coronary artery without angina pectoris; F32.9 Major depressive disorder, single episode, unspecified
CPT/HCPCS: 36415; 70450; 71045; 80048; 80053; 80307; 80320; 80329; 81001; 82948; 83036; 84439; 84443; 84484; 85025; 85610; 93005; 99284; G0378; U0002

== ENCOUNTER 2020-12-25 12:32 | Outpatient (RCR) | payer MEDICARE ==
[~2020-12-25 12:32] MED LIST changes: +ALPRAZOLAM0.5 M1 PO; +AMLODIPINE BESY10 MG PO; +NEURONTIN300 MG PO
[2020-12-25] MEDS ORDERED: LIDOCAINE/PRILOCAINE 2.5-2.5% KIT ONE (17:48)
== END 2021-01-07 ==
LOC: WCC 12:32
PROVIDERS: ATTEND Podiatrist Foot & Ankle Surgery
DX: E11.621 Type 2 diabetes mellitus with foot ulcer (principal); E11.65 Type 2 diabetes mellitus with hyperglycemia; L97.418 Non-pressure chronic ulcer of right heel and midfoot with other specified severity; I79.8 Other disorders of arteries, arterioles and capillaries in diseases classified elsewhere; G99.0 Autonomic neuropathy in diseases classified elsewhere; I87.2 Venous insufficiency (chronic) (peripheral); I10 Essential (primary) hypertension; E78.2 Mixed hyperlipidemia; Z01.810 Encounter for preprocedural cardiovascular examination; Z01.811 Encounter for preprocedural respiratory examination

== ENCOUNTER 2021-01-11 17:24 | Inpatient (IN) | payer MEDICARE ==
[~2021-01-11] VITALS: Ht 157.5 cm; Wt 68.0 kg
[2021-01-11] MEDS ORDERED: SODIUM CHLORIDE 0.9% 1000ML 1,000 ML IV STA (17:52)
[2021-01-11] MEDS ORDERED: ONDANSETRON HCL INJ 2MG/ML 2ML 2 MG/ML VIAL IV STA (17:52)
[2021-01-11 18:45] LABS: BASOPHILS % 0.3 % (0.0-1.0); EOSINOPHILS # (AUTO) 0.1 (0.0-0.4); EOSINOPHILS % 1.4 % (0.0-6.0); HEMATOCRIT 38.7 % (34.2-44.1); HEMOGLOBIN 13.3 g/dL (12.0-16.0); LYMPHOCYTES # (AUTO) 1.1 (1.0-3.2); LYMPHOCYTES % 16.2 % (18.0-39.1); MEAN CORPUSCULAR HEMOGLOBIN 31.1 pg (28-32); MEAN CORPUSCULAR HGB CONC 34.4 g/dL (31-35); MEAN CORPUSCULAR VOLUME 90.4 fL (81-99); MONOCYTES # (AUTO) 0.5 (0.2-0.8); MONOCYTES % 7.7 % (4.4-11.3); NEUTROPHILS # (AUTO) 5.2 (2.1-6.9); PLATELET COUNT 198 x10e3/uL (140-360); RED BLOOD COUNT 4.28 x10e6/uL (3.6-5.1); RED CELL DISTRIBUTION WIDTH 12.5 % (11.7-14.4)
[2021-01-11 18:52] LABS: CLARITY,URINE SL CLOUDY (CLEAR); COLOR,URINE YELLOW (YELLOW); KETONES,URINE TRACE (NEGATIVE); LEUKOCYTE ESTERASE ,URINE SMALL (NEGATIVE); NITRITE,URINE NEGATIVE (NEGATIVE); PROTEIN,URINE DIPSTICK NEGATIVE (NEGATIVE); URINE UROBILINOGEN 0.2 mg/dL (0.2 - 1)
[2021-01-11 19:01] LABS: ALBUMIN 4.5 g/dL (3.5-5.0); ALBUMIN/GLOBULIN RATIO 1.5 (0.8-2.0); ANION GAP 18.6 mmol/L (8-16); CALCIUM 9.2 mg/dL (8.4-10.2); CREATININE, SERUM 1.96 mg/dL (0.57-1.11); POTASSIUM 3.6 mmol/L (3.5-5.1)
[2021-01-11 19:05] LABS: BACTERIA,URINE FEW /HPF; EPITHELIAL CELLS,URINE MODERATE /LPF
[2021-01-11 19:09] LABS: CREATINE KINASE MB 5.6 ng/mL (0-5.0)
[2021-01-11] MEDS ORDERED: ONDANSETRON HCL INJ 2MG/ML 2ML 2 MG/ML VIAL IV PRN (20:15)
[2021-01-11 23:00] VITALS: BP 132/69
[2021-01-11] MEDS: SODIUM CHLORIDE 0.9% 1000ML 1,000 ML IV SCH (23:30)
[2021-01-12] VITALS (8 sets, daily range): BP systolic 13–132; BP diastolic 55–89
[2021-01-12 03:21] LABS: CREATINE KINASE MB 5.6 ng/mL (0-5.0)
[2021-01-12] MEDS ORDERED: ARICEPT5 MG PO (03:34)
[2021-01-12] MEDS ORDERED: NEURONTIN300 MG PO (03:34)
[2021-01-12] MEDS ORDERED: HYDROCHLOROTHIA25 MG PO (03:34)
[2021-01-12] MEDS ORDERED: ULTRAM50 MG PO (03:34)
[2021-01-12 06:00] LABS: BASOPHILS % 0.3 % (0.0-1.0); EOSINOPHILS # (AUTO) 0.2 (0.0-0.4); HEMATOCRIT 39.3 % (34.2-44.1); HEMOGLOBIN 13.4 g/dL (12.0-16.0); LYMPHOCYTES # (AUTO) 1.2 (1.0-3.2); LYMPHOCYTES % 20.2 % (18.0-39.1); MEAN CORPUSCULAR HGB CONC 34.1 g/dL (31-35); MONOCYTES # (AUTO) 0.6 (0.2-0.8); MONOCYTES % 10.2 % (4.4-11.3); NEUTROPHILS # (AUTO) 3.8 (2.1-6.9); PLATELET COUNT 175 x10e3/uL (140-360); RED BLOOD COUNT 4.32 x10e6/uL (3.6-5.1); RED CELL DISTRIBUTION WIDTH 12.4 % (11.7-14.4)
[2021-01-12 06:23] LABS: CREATINE KINASE MB 5.1 ng/mL (0-5.0)
[2021-01-12] MEDS: SODIUM CHLORIDE 0.9% 1000ML 1,000 ML IV SCH ×2 (06:32→21:29)
[2021-01-12 06:43] LABS: ALBUMIN 4.1 g/dL (3.5-5.0); ALBUMIN/GLOBULIN RATIO 1.4 (0.8-2.0); ANION GAP 15.7 mmol/L (8-16); CREATININE, SERUM 1.42 mg/dL (0.57-1.11); POTASSIUM 3.7 mmol/L (3.5-5.1)
[2021-01-12] MEDS ORDERED: TRAMADOL HCL 50 MG TAB PO PRN (08:00)
[2021-01-12] MEDS: LOSARTAN POTASSIUM 100 MG TAB PO SCH (09:50)
[2021-01-12] MEDS: ISOSORBIDE MONONITRATE 30 MG TAB CR PO SCH (09:50)
[2021-01-12] MEDS: METOPROLOL TARTRATE 50 MG TAB PO SCH ×2 (09:50→17:00)
[2021-01-12] MEDS: EZETIMIBE 10 MG TAB PO SCH (09:51)
[2021-01-12] MEDS: SIMVASTATIN 40 MG TAB PO SCH (09:51)
[2021-01-12] MEDS: AMLODIPINE BESYLATE 10 MG TAB PO SCH (09:51)
[2021-01-12] MEDS: GABAPENTIN 300 MG CAP PO SCH (09:51)
[2021-01-12] MEDS: CLOPIDOGREL BISULFATE 75 MG TAB PO SCH (09:51)
[2021-01-12 11:57] LABS: CREATINE KINASE MB 4.3 ng/mL (0-5.0)
[2021-01-12] MEDS ORDERED: DONEPEZIL HCL 5 MG TAB PO SCH (21:00)
[2021-01-13 00:14] VITALS: BP 122/55
[2021-01-13 05:53] VITALS: BP 129/71
[2021-01-13 06:21] LABS: BASOPHILS % 0.4 % (0.0-1.0); EOSINOPHILS # (AUTO) 0.2 (0.0-0.4); EOSINOPHILS % 2.1 % (0.0-6.0); HEMATOCRIT 40.1 % (34.2-44.1); HEMOGLOBIN 13.7 g/dL (12.0-16.0); LYMPHOCYTES # (AUTO) 1.7 (1.0-3.2); LYMPHOCYTES % 22.1 % (18.0-39.1); MEAN CORPUSCULAR HEMOGLOBIN 32.1 pg (28-32); MEAN CORPUSCULAR HGB CONC 34.2 g/dL (31-35); MEAN CORPUSCULAR VOLUME 93.9 fL (81-99); MONOCYTES # (AUTO) 0.6 (0.2-0.8); NEUTROPHILS # (AUTO) 5.2 (2.1-6.9); NEUTROPHILS % 67.1 % (38.7-80.0); PLATELET COUNT 174 x10e3/uL (140-360); RED BLOOD COUNT 4.27 x10e6/uL (3.6-5.1); RED CELL DISTRIBUTION WIDTH 13.1 % (11.7-14.4)
[2021-01-13 06:46] LABS: ALBUMIN 4.1 g/dL (3.5-5.0); ALBUMIN/GLOBULIN RATIO 1.4 (0.8-2.0); ANION GAP 15.7 mmol/L (8-16); CREATININE, SERUM 1.31 mg/dL (0.57-1.11); POTASSIUM 3.7 mmol/L (3.5-5.1)
[2021-01-13 08:43] VITALS: BP 127/75
[2021-01-13 09:01] VITALS: BP 127/75
[2021-01-13] MEDS: LOSARTAN POTASSIUM 100 MG TAB PO SCH (09:36)
[2021-01-13] MEDS: EZETIMIBE 10 MG TAB PO SCH (09:37)
[2021-01-13] MEDS: SIMVASTATIN 40 MG TAB PO SCH (09:37)
[2021-01-13] MEDS: METOPROLOL TARTRATE 50 MG TAB PO SCH (09:37)
[2021-01-13] MEDS: ISOSORBIDE MONONITRATE 30 MG TAB CR PO SCH (09:37)
[2021-01-13] MEDS: CLOPIDOGREL BISULFATE 75 MG TAB PO SCH (09:37)
[2021-01-13] MEDS: AMLODIPINE BESYLATE 10 MG TAB PO SCH (09:37)
[2021-01-13] MEDS: GABAPENTIN 300 MG CAP PO SCH (09:37)
[2021-01-13] MEDS ORDERED: ZOFRAN4 MG PO (12:20)
[2021-01-13 12:53] VITALS: BP 116/65
== END 2021-01-13 13:47 | disposition home or self-care (01) | DRG 683 ==
LOC: ER 18:00 → ERHOLD 20:22 → MED/SURG2 22:51
PROVIDERS: ADMIT Family Medicine; ATTEND Family Medicine
DX: N17.9 Acute kidney failure, unspecified (principal); M62.82 Rhabdomyolysis; I25.10 Atherosclerotic heart disease of native coronary artery without angina pectoris; E78.5 Hyperlipidemia, unspecified; E11.51 Type 2 diabetes mellitus with diabetic peripheral angiopathy without gangrene; Z79.899 Other long term (current) drug therapy; Z20.822 Contact with and (suspected) exposure to COVID-19; F03.90 Unspecified dementia, unspecified severity, without behavioral disturbance, psychotic disturbance, mood disturbance, and anxiety
CPT/HCPCS: 36415; 74176; 80053; 81001; 82550; 82553; 82948; 83690; 83735; 83880; 84484; 85025; 93005; 96361; 99284; J2405; J7030; U0002

== ENCOUNTER 2021-01-22 13:00 | Outpatient (RCR) | payer MEDICARE ==
[~2021-01-22 13:00] MED LIST changes: +ARICEPT5 MG PO; +LIDOCAINE VISC 2% SOLN 15 ML UDC ONE; +ZOFRAN4 MG PO
== END 2021-02-06 ==
LOC: WCC 13:00
PROVIDERS: ATTEND Podiatrist Foot & Ankle Surgery
DX: E11.621 Type 2 diabetes mellitus with foot ulcer (principal); E11.65 Type 2 diabetes mellitus with hyperglycemia; L97.418 Non-pressure chronic ulcer of right heel and midfoot with other specified severity; I87.2 Venous insufficiency (chronic) (peripheral); I79.8 Other disorders of arteries, arterioles and capillaries in diseases classified elsewhere; G99.0 Autonomic neuropathy in diseases classified elsewhere; I10 Essential (primary) hypertension; E78.2 Mixed hyperlipidemia; Z01.810 Encounter for preprocedural cardiovascular examination; Z01.811 Encounter for preprocedural respiratory examination

== ENCOUNTER 2021-02-19 12:55 | Outpatient (RCR) | payer MEDICARE ==
[~2021-02-19 12:55] MED LIST changes: -LIDOCAINE VISC 2% SOLN 15 ML UDC ONE
== END 2021-03-09 ==
LOC: WCC 12:55
PROVIDERS: ATTEND Podiatrist Foot & Ankle Surgery
DX: E11.621 Type 2 diabetes mellitus with foot ulcer (principal); E11.65 Type 2 diabetes mellitus with hyperglycemia; L97.418 Non-pressure chronic ulcer of right heel and midfoot with other specified severity; I79.8 Other disorders of arteries, arterioles and capillaries in diseases classified elsewhere; I87.2 Venous insufficiency (chronic) (peripheral); G99.0 Autonomic neuropathy in diseases classified elsewhere; I10 Essential (primary) hypertension; E78.2 Mixed hyperlipidemia; Z01.810 Encounter for preprocedural cardiovascular examination; Z01.811 Encounter for preprocedural respiratory examination

== ENCOUNTER 2021-04-02 14:52 | Outpatient (RCR) | payer MEDICARE ==
[~2021-04-02 14:52] MED LIST changes: +LIDOCAINE VISC 2% SOLN 15 ML UDC ONE
== END 2021-04-09 ==
LOC: WCC 14:52
PROVIDERS: ATTEND Podiatrist Foot & Ankle Surgery
DX: E11.621 Type 2 diabetes mellitus with foot ulcer (principal); E11.65 Type 2 diabetes mellitus with hyperglycemia; L97.411 Non-pressure chronic ulcer of right heel and midfoot limited to breakdown of skin; I87.2 Venous insufficiency (chronic) (peripheral); I79.8 Other disorders of arteries, arterioles and capillaries in diseases classified elsewhere; G99.0 Autonomic neuropathy in diseases classified elsewhere; I10 Essential (primary) hypertension; E78.2 Mixed hyperlipidemia; Z01.810 Encounter for preprocedural cardiovascular examination; Z01.811 Encounter for preprocedural respiratory examination

== ENCOUNTER → 2022-10-07 | Day surgery (SDC) | payer MEDICARE ==
[2022-10-03 13:28] LABS: BASOPHILS % 0.3 % (0.0-1.0); EOSINOPHILS # (AUTO) 0.2 (0.0-0.4); EOSINOPHILS % 2.6 % (0.0-6.0); HEMATOCRIT 40.8 % (34.2-44.1); HEMOGLOBIN 12.9 g/dL (12.0-16.0); LYMPHOCYTES # (AUTO) 1.1 (1.0-3.2); LYMPHOCYTES % 17.7 % (18.0-39.1); MEAN CORPUSCULAR HEMOGLOBIN 30.8 pg (28-32); MEAN CORPUSCULAR HGB CONC 31.6 g/dL (31-35); MEAN CORPUSCULAR VOLUME 97.4 fL (81-99); MONOCYTES # (AUTO) 0.4 (0.2-0.8); MONOCYTES % 6.4 % (4.4-11.3); NEUTROPHILS # (AUTO) 4.5 (2.1-6.9); NEUTROPHILS % 72.8 % (38.7-80.0); PLATELET COUNT 170 x10e3/uL (140-360); RED BLOOD COUNT 4.19 x10e6/uL (3.6-5.1); RED CELL DISTRIBUTION WIDTH 12.9 % (11.7-14.4)
[2022-10-03 13:57] LABS: ALBUMIN 3.6 g/dL (3.5-5.0); ALBUMIN/GLOBULIN RATIO 1.1 (0.8-2.0); ANION GAP 12.4 mmol/L (8-16); CREATININE, SERUM 1.41 mg/dL (0.57-1.11); POTASSIUM 4.4 mmol/L (3.5-5.1)
[2022-10-07] VITALS (9 sets, daily range): BP systolic 150–184; BP diastolic 65–79
[~2022-10-07] MED LIST changes: +ALPRAZOLAM 0.5 MG TAB ONE; +DIPHENHYDRAMINE HCL 25 MG CAP ONE; +FENTANYL CITRATE/PF 100MCG/2 ML INJ ONE; +HEPARIN SOD (PORCINE) 1000 UNIT/ML 30ML ONE; +HEPARIN SOD/SOD CHLORIDE 2,000 ML ONE; +IOPAMIDOL 370 MG/ML 100 ML INFUS..BTL INJ ONE; +LIDOCAINE HCL 1% 30ML-PF VIAL ONE; -LIDOCAINE VISC 2% SOLN 15 ML UDC ONE; +MIDAZOLAM HCL 2 MG/2 ML VIAL ONE; +NITROGLYCERIN/D5W 200 MCG/ML 250 ML ONE; +SODIUM CHLORIDE 0.9% 1000ML 1,000 ML ONE; +VERAPAMIL HCL 2.5 MG/ML 2 ML VIAL ONE
== END | disposition home or self-care (01) ==
LOC: CATH LAB 11:48
PROVIDERS: ATTEND Internal Medicine Interventional Cardiology
DX: I25.10 Atherosclerotic heart disease of native coronary artery without angina pectoris (principal); E11.22 Type 2 diabetes mellitus with diabetic chronic kidney disease; I13.2 Hypertensive heart and chronic kidney disease with heart failure and with stage 5 chronic kidney disease, or end stage renal disease; N18.6 End stage renal disease; I50.9 Heart failure, unspecified; I44.2 Atrioventricular block, complete; F32.A Depression, unspecified; Z01.812 Encounter for preprocedural laboratory examination; Z79.84 Long term (current) use of oral hypoglycemic drugs; Z79.899 Other long term (current) drug therapy; Z79.02 Long term (current) use of antithrombotics/antiplatelets; Z95.0 Presence of cardiac pacemaker; Z95.5 Presence of coronary angioplasty implant and graft
CPT/HCPCS: 36415 ×2; 80053; 80061; 82948; 83880; 85025; 93454; C1887; C1894; J1644; J2001; J2250; J3010; J7030; Q9967; 99152